=== PATIENT | female | born 1995 | race Hispanic/Latino ===

== ENCOUNTER 2019-01-27 07:37 | Emergency (ER) | payer BC, OTHER ==
--- OUTSIDE RECORDS SUMMARY | 2019-01-27 07:39 | XMS REPORT ---
:1995 [facility] [address] [place] [address] Dr. Rodriguez [address] [place] [id number] Care Team Providers Name Role Phone Unavailable Unavailable Unavailable Problems This patient has no known problems. Allergies, Adverse Reactions, Alerts This patient has no known allergies or adverse reactions. Medications This patient has no known medications.
--- NOTE | 2019-01-27 07:51 | ER ---
Nurse's Notes [facility] Name: Lizbeth Vera Age: 23 yrs Sex: Female : 1995 Arrival Date: 01/27/2019 Time: 07:45 Bed 5 Private MD: Diagnosis: Recurrent subluxation of patella, left knee Presentation: 01/27 07:48 Presenting complaint: EMS states: Pt getting into car and left knee locked up. jl7 Transition of care: patient was not received from another setting of care. Onset of symptoms was January 27, 2019. Risk Assessment: Do you want to hurt yourself or someone else? Patient reports no desire to harm self or others. Initial Sepsis Screen: Does the patient meet any 2 criteria? No. Patient's initial sepsis screen is negative. Does the patient have a suspected source of infection? No. Patient's initial sepsis screen is negative. Care prior to arrival: None. 07:48 Method Of Arrival: EMS: Agency EMS jl7 07:48 Acuity: WANG 4 jl7 Triage Assessment: 07:50 General: Appears in no apparent distress. uncomfortable, Behavior is calm, cooperative, jl7 appropriate for age. Pain: Denies pain. EENT: No signs and/or symptoms were reported regarding the EENT system. Neuro: Level of Consciousness is awake, alert, obeys commands, Oriented to person, place, time, situation. Cardiovascular: Patient's skin is warm and dry. Respiratory: Airway is patent Respiratory effort is even, unlabored, Respiratory pattern is regular, symmetrical. GI: No signs and/or symptoms were reported involving the gastrointestinal system. : No signs and/or symptoms were reported regarding the genitourinary system. Derm: Skin is pink, warm \T\ dry. Musculoskeletal: Range of motion: limited in left knee. 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 - Social history:: Smoking status: Patient/guardian denies using tobacco. - Family history:: not pertinent. - Ebola Screening: : No symptoms or risks identified at this time. - Hospitalizations: : No recent hospitalization is reported. Screenin:52 Abuse screen: Denies threats or abuse. Denies injuries from another. Nutritional jl7 screening: No deficits noted. Tuberculosis screening: No symptoms or risk factors identified. Fall Risk Gait- Impaired (20 pts.). Total Ureña Fall Scale indicates No Risk (0-24 pts). Assessment: 07:52 General: See triage assessment. jl7 Vital Signs: 07:50 BP 129 / 70; Pulse 85; Resp 16 S; Temp 98.2(O); Pulse Ox 100% on R/A; Weight 70.31 kg jl7 (R); Height 5 ft. 5 in. (165.10 cm) (R); Pain 0/10; 07:50 Body Mass Index 25.79 (70.31 kg, 165.10 cm) jl7 ED Course: 07:45 Patient arrived in ED. aa5 07:45 Byron Chicas MD is Attending Physician. rn 07:48 Roque Haywood, HERBERT is Primary Nurse. jl7 07:49 Triage completed. jl7 07:50 Zion Hess MD is Referral Physician. rn 07:50 Arm band placed on right wrist. jl7 07:52 Patient has correct armband on for positive identification. Bed in low position. Call jl7 light in reach. Side rails up X 1. Pulse ox on. NIBP on. 07:53 No provider procedures requiring assistance completed. Patient did not have IV access jl7 during this emergency room visit. Administered Medications: No medications were administered Outcome: 07:50 Discharge ordered by . rn 07:57 Discharged to home ambulatory. jl7 07:57 Condition: stable 07:57 Discharge instructions given to patient, Instructed on discharge instructions, follow up and referral plans. Demonstrated understanding of instructions, follow-up care. 07:57 Patient left the ED. jl7 Signatures: Byron Chicas MD MD rn Calderon, Audri, RN RN aa5 Roque Haywood RN RN jl7
--- NOTE | 2019-01-27 07:51 | EDPHYS ---
Physician Documentation [facility] Name: Lizbeth Vera Age: 23 yrs Sex: Female : 1995 Arrival Date: 01/27/2019 Time: 07:45 Bed 5 Private MD: ED Physician Byron Chicas HPI: 01/27 07:45 This 23 yrs old Female presents to ER via Unassigned with complaints of Knee rn Pain. 07:45 The patient presents with decreased range of motion, pain, that is acute. The rn complaints affect the left knee. Onset: The symptoms/episode began/occurred just prior to arrival. Modifying factors: The symptoms are alleviated by straightening leg. Severity of symptoms: At their worst the symptoms were moderate, in the emergency department the symptoms have improved. The patient has experienced similar episodes in the past. REports bending knee and twisting to get into vehicle, her left knee locked up, unable to move it, no pop or blunt trauma, now improved, able to range knee now and just feels sore, has happened before and reports in past able to straighten it and medial pressure resolves it. . 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 - Social history:: Smoking status: Patient/guardian denies using tobacco. - Family history:: not pertinent. - Ebola Screening: : No symptoms or risks identified at this time. - Hospitalizations: : No recent hospitalization is reported. ROS: 07:45 Constitutional: Negative for fever, chills, and weight loss, MS/Extremity: + left knee rn pain and locking Neuro: Negative for weakness, numbness Exam: 07:45 Constitutional: This is a well developed, well nourished patient who is awake, alert, rn and in no acute distress. MS/ Extremity: Pulses equal, no cyanosis. Neurovascular intact. Full, normal range of motion. Equal circumference. NO bony tenderness, no patellar dislocation currently. No palpable cord. Vital Signs: 07:50 BP 129 / 70; Pulse 85; Resp 16 S; Temp 98.2(O); Pulse Ox 100% on R/A; Weight 70.31 kg jl7 (R); Height 5 ft. 5 in. (165.10 cm) (R); Pain 0/10; 07:50 Body Mass Index 25.79 (70.31 kg, 165.10 cm) jl7 MDM: 07:45 Patient medically screened. rn 07:45 Differential diagnosis: dislocation, tendonitis, patella dislocation/subluxation. Data rn reviewed: vital signs, nurses notes, and as a result, I will discharge patient. Counseling: I had a detailed discussion with the patient and/or guardian regarding: the historical points, exam findings, and any diagnostic results supporting the discharge/admit diagnosis, the need for outpatient follow up, to return to the emergency department if symptoms worsen or persist or if there are any questions or concerns that arise at home. Response to treatment: the patient's symptoms have markedly improved after treatment. Special discussion: I discussed with the patient/guardian in detail that at this point there is no indication for admission to the hospital. It is understood, however, that if the symptoms persist or worsen the patient needs to return immediately for re-evaluation. Based on the history and exam findings, there is no indication for further emergent testing or inpatient evaluation. I discussed with the patient/guardian the need to see the orthopedic surgeon for further evaluation of the symptoms. ED course: Most likely subluxation of patella, given repeated episodes and improvement with straightening leg and medial pressure, no subluxation now, no trauma to suggest bony injury, discussed with patient that xray does not evaluate structures other than bone, and she declines xray. Suggest knee brace for patellar stabilization and ortho f/u. . Administered Medications: No medications were administered Disposition: 01/27/19 07:50 Discharged to Home. Impression: Recurrent subluxation of patella, left knee. - Condition is Stable. - Discharge Instructions: Patellar Dislocation. - Medication Reconciliation Form, Thank You Letter, Antibiotic Education, Prescription Opioid Use form. - Follow up: Zion Hess MD; When: As needed; Reason: Recheck today's complaints, Re-evaluation by your physician. - Problem is new. - Symptoms have improved. Signatures: Byron Chicas MD MD rn Leal, Jahala, RN RN jl7 Corrections: (The following items were deleted from the chart) 07:57 07:50 01/27/2019 07:50 Discharged to Home. Impression: Recurrent subluxation of jl7 patella, left knee. Condition is Stable. Forms are Medication Reconciliation Form, Thank You Letter, Antibiotic Education, Prescription Opioid Use. Follow up: Dr. Zion Hess; When: As needed; Reason: Recheck today's complaints, Re-evaluation by your physician. Problem is new. Symptoms have improved. rn
[2019-01-27 08:28] VITALS: BP 129/70; TEMP 98.2; O2SAT 100
== END 2019-01-27 07:57 | disposition home or self-care (01) ==
LOC: ER 07:37
DX: M22.12 Recurrent subluxation of patella, left knee (principal); J45.909 Unspecified asthma, uncomplicated; M06.9 Rheumatoid arthritis, unspecified; Z88.5 Allergy status to narcotic agent; Z88.0 Allergy status to penicillin
CPT/HCPCS: 99283

== ENCOUNTER 2021-11-30 10:43 | Emergency (ER) | payer OTHER ==
--- OUTSIDE RECORDS SUMMARY | 2021-11-30 10:49 | XMS REPORT | Continuity of Care Document ---
:1995 Author Organization [facility] t Address [address] [place] [address] Care Team Providers Name Role Phone Pepito Redman Jr. Primary Care Physician GARY AYALA Attending Clinician Unavailable Gary Ayala MD Attending Clinician Pob, Lab Main Attending Clinician Unavailable Yolie SCHUSTER Attending Clinician Ultrasound Attending Clinician Unavailable Carson Wright MD Attending Clinician Carson WRIGHT Attending Clinician Unavailable Payers Payer Name Policy Type Policy Number Effective Date Expiration Date [facility] [id number] 2021 00:00:00 Problems Condition Condition Condition Status Onset Resolution Last Treating Co mments Source Name Details Category Date Date Treatment Clinician Date High risk High risk Disease Active Uni vers , , 1-07 [place] History of History of Disease Active 2020-10 U nivers anxiety anxiety 0-15 ity of 00:00: [place] [id number] Medical Branch Nausea Nausea Disease Active 2020-10 Univers 0-15 ity of 00:00: [place] [address] Medical Branch 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 3-30 [place] of [place] (CH[place] (CHAKA II) 00 Medica l Branch Papanicola Papanicola Disease Active U nivers ou smear ou smear 3-23 ity 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 Allergies, Adverse Reactions, Alerts Allergy Allergy Status Severity Reaction(s) Onset Inactive Treating Comm ents Source Name Type Date Date Clinician Penicill Propensi Active Hives 2013-10 Univer s ins ty to 0-13 ity of adverse 00:00: [place] reaction 00 Medical s Branch Tramadol Propensi Active Anaphylaxis 2013-10 U nivers ty to 0-13 ity of adverse 00:00: [place] reaction 00 Medical s Branch PENICILL Drug Active Hives 2013-10 Univers INS Class 0-13 ity of 00:00: [place] 00 Medical Branch TRAMADOL DRUG Active Anaphylaxis 2013-10 Uni vers INGREDI 0-13 ity of 00:00: [address] Social History Social Habit Start Date Stop Date Quantity Comments Source ASSERTION 2021-06-14 [facility] 00:00:00 [facility] Alcohol intake 2021-11-16 2021-11-16 Ex-drinker [facility] 00:00:00 00:00:00 (finding) [facility] Sex Ass[birth year] At [birth year] Universit y of 00:00:00 00:00:00 [facility] Smoking Status Start Date Stop Date Source Never smoker [facility] Medications Ordered Filled Start Stop Current Ordering Indication Dosage Frequency Signature Comments Components Source Medication Medication Date Date Medication? Clinician (SIG) Name Name Nitrofurant Yes [id number] 100mg Take 1 Univers oin&Nit. 1-18 capsule by dago anglin f [facility] 00:00: mouth [place] (MACROBID) 00 daily. Medical 100 mg Branch capsule Nitrofurant Yes [id number] 100mg Take 1 Univers oin&Nit. 1-18 capsule by ity o f [facility] 00:00: mouth [place] (MACROBID) 00 daily. Medical 100 mg Branch capsule Nitrofurant Yes [id number] 100mg Take 1 Univers oin&Nit. 1-18 capsule by ity o f [facility] 00:00: mouth [place] (MACROBID) 00 daily. Medical 100 mg Branch capsule Nitrofurant Yes [id number] 100mg Take 1 Univers oin&Nit. 1-18 capsule by ity o f [facility] 00:00: mouth [place] (MACROBID) 00 daily. Medical 100 mg Branch capsule Nitrofurant Yes [id number] 100mg Take 1 Univers oin&Nit. 1-18 capsule by ity o f [facility] 00:00: mouth [place] (MACROBID) 00 daily. Medical 100 mg Branch capsule Nitrofurant Yes [id number] 100mg Take 1 Univers oin&Nit. 1-18 capsule by ity o f [facility] 00:00: mouth [place] (MACROBID) 00 daily. Medical 100 mg Branch capsule Nitrofurant 2021- Yes [id number] 100mg Take 1 Univers oin&Nit. 1-10 -18 capsule by ity of [facility] 00:00: 05:59 mouth 2 [place] (MACROBID) 00 :00 (two) Medical 100 mg times Branch capsule daily for 7 days. Nitrofurant 2021- Yes [id number] 100mg Take 1 Univers oin&Nit. 1-10 -18 capsule by ity of [facility] 00:00: 05:59 mouth 2 [place] (MACROBID) 00 :00 (two) Medical 100 mg times Branch capsule daily for 7 days. cephALEXin 2020-10- Yes [id number] 500mg Take 1 Univers 500 mg 11-25 capsule by ity of capsule 00:00: 05:59 mouth 4 [place] 00 :00 (four) Medical times Branch daily for 7 days. cephALEXin 2020-10- No [id number] 500mg Take 1 Univers 500 mg 1-08 12-10 capsule by ity of capsule 00:00: 00:00 mouth 2 [place] 00 :00 (two) Medical times Branch daily. Yes Take by Unive rs vit 9-30 mouth. ity of calc,iron,f 14:37: [place] [address] Medical ( Branch VITAMIN ORAL) Yes Take by Unive rs vit 9-30 mouth. ity of calc,iron,f 14:37: [address] ( Branch VITAMIN ORAL) Yes Take by Unive rs vit 9-30 mouth. ity of calc,iron,f 14:37: [address] ( Branch VITAMIN ORAL) Yes Take by Unive rs vit 9-30 mouth. ity of calc,iron,f 14:37: [address] ( Branch VITAMIN ORAL) Yes Take by Unive rs vit 9-30 mouth. ity of calc,iron,f 14:37: [address] ( Branch VITAMIN ORAL) Yes Take by Unive rs vit 9-30 mouth. ity of calc,iron,f 14:37: [address] ( Branch VITAMIN ORAL) Yes Take by Unive rs vit 9-30 mouth. ity of calc,iron,f 14:37: [address] ( Branch VITAMIN ORAL) Yes Take by Unive rs vit 9-30 mouth. ity of calc,iron,f 14:37: [address] ( Branch VITAMIN ORAL) Yes Take by Unive rs vit 9-30 mouth. ity of calc,iron,f 14:37: [address] ( Branch VITAMIN ORAL) Yes Take by Unive rs vit 9-30 mouth. ity of calc,iron,f 14:37: [address] ( Branch VITAMIN ORAL) ALBUTEROL Yes Inhale. Unive rs INHALE 6-21 ity of 11:26: [address] ALBUTEROL 2018- Yes Inhale. Unive rs INHALE 6-21 ity of 11:26: [address] ALBUTEROL 2018-0 Yes Inhale. Unive rs INHALE 6-21 ity of 11:26: [address] ALBUTEROL 2018-0 Yes Inhale. Unive rs INHALE 6-21 ity of 11:26: [address] ALBUTEROL 2018-0 Yes Inhale. Unive rs INHALE 6-21 ity of 11:26: [address] ALBUTEROL 2018-0 Yes Inhale. Unive rs INHALE 6-21 ity of 11:26: [address] ALBUTEROL 2018-0 Yes Inhale. Unive rs INHALE 6-21 ity of 11:26: [address] ALBUTEROL 2017-0 Yes Inhale. Unive rs INHALE 6-21 ity of 11:26: [address] ALBUTEROL 2018-0 Yes Inhale. Unive rs INHALE 6-21 ity of 11:26: [address] ALBUTEROL 0 Yes Inhale. Unive rs INHALE 6-21 ity of 11:26: [address] Immunizations Ordered Filled Immunization Date Status Comments [facility] e Immunization Name Name TD 2016-07-04 Completed University of 00:00:00 [facility] Influenza Virus 2016-07-04 Completed Universit y of Vaccine Quad IM 3+ 00:00:00 [facility] TDAP 2016-07-04 Completed University of 00:00:00 [facility] Influenza Virus 2016-07-04 Completed Universit y of Vaccine Quad IM 3+ 00:00:00 [facility] TDAP 2016-07-04 Completed University of 00:00:00 [facility] Influenza Virus 2016-07-04 Completed Universit y of Vaccine Quad IM 3+ 00:00:00 [facility] TDAP 2016-07-04 Completed University of 00:00:00 [facility] Influenza Virus 2016-07-04 Completed Universit y of Vaccine Quad IM 3+ 00:00:00 [facility] TDAP 2016-07-04 Completed University of 00:00:00 [facility] Influenza Virus 2016-07-04 Completed Universit y of Vaccine Quad IM 3+ 00:00:00 [facility] TDAP 2016-07-04 Completed University of 00:00:00 [facility] Influenza Virus 2016-07-04 Completed Universit y of Vaccine Quad IM 3+ 00:00:00 [facility] TDAP 2016-07-04 Completed University of 00:00:00 [facility] Influenza Virus 2016-07-04 Completed Universit y of Vaccine Quad IM 3+ 00:00:00 [facility] TDAP 2016-07-04 Completed University of 00:00:00 [facility] Influenza Virus 2016-07-04 Completed Universit y of Vaccine Quad IM 3+ 00:00:00 [facility] TDAP 2016-07-04 Completed University of 00:00:00 [facility] Influenza Virus 2016-07-04 Completed Universit y of Vaccine Quad IM 3+ 00:00:00 [facility] TDAP 2016-07-04 Completed University of 00:00:00 [facility] Influenza Virus 2016-07-04 Completed Universit y of Vaccine Quad IM 3+ 00:00:00 [facility] MMR 2014-07-27 Completed University of 00:00:00 [facility] MMR 2014-07-27 Completed University of 00:00:00 [facility] MMR 2014-07-27 Completed University of 00:00:00 [facility] MMR 2014-07-27 Completed University of 00:00:00 [facility] MMR 2014-07-27 Completed University of 00:00:00 [facility] MMR 2014-07-27 Completed University of 00:00:00 [facility] MMR 2014-07-27 Completed University of 00:00:00 [facility] MMR 2014-07-27 Completed University of 00:00:00 [facility] MMR 2014-07-27 Completed University of 00:00:00 [facility] MMR 2014-07-27 Completed University of 00:00:00 [facility] Td 2009-05-25 Completed University of 00:00:00 [facility] Td 2009-05-25 Completed University of 00:00:00 [facility] Td 2009-05-25 Completed University of 00:00:00 [facility] Td 2009-05-25 Completed University of 00:00:00 [facility] Td 2009-05-25 Completed University of 00:00:00 [facility] Td 2009-05-25 Completed University of 00:00:00 [facility] Td 2009-05-25 Completed University of 00:00:00 [facility] Td 2009-05-25 Completed University of 00:00:00 [facility] Td 2009-05-25 Completed University of 00:00:00 [facility] Td 2009-05-25 Completed University of 00:00:00 [facility] Vital Signs Vital Name Observation Time Observation Value Comments Source Diastolic blood 2021-11-16 20:04:00 69 mm[Hg] Unive rsity of pressure [facility] Heart rate 2021-11-16 20:04:00 66 /min Universi ty of [facility] Body temperature 2021-11-16 20:04:00 36.44 Melvi Univ ersity of [facility] Respiratory rate 2021-11-16 20:04:00 18 /min Univ ersity of [facility] [place] [facility] Body height 2021-11-16 20:04:00 165.1 cm Universi ty of [facility] Body weight 2021-11-16 20:04:00 72.576 kg Universi ty of [facility] BMI 2021-11-16 20:04:00 26.63 kg/m2 Universi ty of [facility] Systolic blood 2021-11-16 20:04:00 107 mm[Hg] Univer sity of pressure [facility] Systolic blood 2021-10-19 20:38:00 110 mm[Hg] Univer sity of pressure [facility] Diastolic blood 2021-10-19 20:38:00 73 mm[Hg] Unive rsity of pressure [facility] Heart rate 2021-10-19 20:38:00 82 /min Universi ty of [facility] Body temperature 2021-10-19 20:38:00 36.44 Melvi Univ ersity of [facility] Respiratory rate 2021-10-19 20:38:00 18 /min Univ ersity of [facility] Body height 2021-10-19 20:38:00 165.1 cm Universi ty [facility] Body weight 2021-10-19 20:38:00 70.761 kg Universi ty of [facility] BMI 2021-10-19 20:38:00 25.96 kg/m2 Universi ty of [facility] Systolic blood 2021-09-21 18:32:00 111 mm[Hg] Univer sity of pressure [facility] Diastolic blood 2021-09-21 18:32:00 74 mm[Hg] Unive rsity of pressure [facility] Heart rate 2021-09-21 18:32:00 60 /min Universi ty of [facility] Body temperature 2021-09-21 18:32:00 36.89 Melvi [facility] Respiratory rate 2021-09-21 18:32:00 18 /min [facility] Body height 2021-09-21 18:32:00 165.1 cm [facility] Body weight 2021-09-21 18:32:00 68.629 kg [facility] BMI 2021-09-21 18:32:00 25.18 kg/m2 [facility] Procedures Procedure Date / Time Performing Clinician Source Performed 2 HR GLUCOSE TOLERANCE 2021-11-16 17:40:00 Kiki Urbano [facility] 1 HR GLUCOSE TOLERANCE 2021-11-16 16:38:00 Kiki Urbano [facility] GLUCOSE FASTING 2021-11-16 15:38:00 Josewmchealthjani [facility] o f [facility] GLYCOSYLATED HEMOGLOBIN 2021-11-16 15:38:00 Yolie Kiki [facility] (A1C) [facility] POCT URINALYSIS W/O 2021-11-16 00:00:[address] [facility] SPECIFIC GRAVITY [facility] POCT URINALYSIS W/O 2021-10-19 00:00:[address] [facility] SPECIFIC GRAVITY [facility] POCT URINALYSIS W/O 2021-09-21 18:38:00 Allen Ayala [facility] GRAVITY [facility] Encounters Start End Encounter Admission Attending Care Care Encounter Source Date/Time Date/Time Type Type Clinicians Facility Department ID 2021-12-14 2021-12-14 Outpatient R ALLEN AYALA [facility] [id number] Univers 12:45:00 12:45:00 [id number] [facility] [facility] 2021-12-14 2021-12-14 Outpatient R ALLEN AYALA [facility] [id number] Univers 12:45:00 12:45:00 [facility] [facility] 2021-11-20 2021-11-20 Telephone Allen Ayala [facility] [id number] Univers 00:00:00 00:00:00 Gary GONZALEZ [id number] i ty of [id number] [id number] Hi dical NAL [address] [facility] 2021-11-16 2021-11-16 Outpatient R ALLEN AYALA [facility] [id number] Univers 14:00:00 14:35:07 ity of [facility] 2021-11-16 2021-11-[address] [facility] [id number] Univers 14:00:00 14:35:07 Gary CABRERA [id number] i ty of Visit [place] [id number] [id number] [address] 2021-11-16 2021-11-16 Inspector Technician Josiah, Katerin Lab Main [facility] 1.2.8 [id number] Univers 10:45:00 11:00:00 Visit Kiki Urbano [id number] ity of [facility] [id number] [id number] Hi dical NAL 353 [facility] 2021-11-16 2021-11-16 Outpatient R LUCY [facility] [id number] Univers 10:45:00 10:45:00 [id number] ity of [facility] 2021-11-01 2021-11-[address] [facility] [id number] Univers 00:00:00 00:00:00 Gary CABRERA [id number] [id number] [id number] [address] 2021-10-22 2021-10-[address] [facility] [id number] Univers 00:00:00 00:00:00 Management Gary CABRERA [id number] ity of [place] [id number] [id number] [address] 2021-10-22 2021-10-[address] [facility] [id number] Univers 00:00:00 00:00:00 Gary CABRERA [id number] it y of [place] [id number] [id number] [address] 2021-10-19 2021-10-19 Outpatient R ALLEN AYALA [facility] [id number] Univers 14:30:00 14:50:20 ity of [facility] 2021-10-19 2021-10-[address] 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 [id number] ity [facility] [id number] [place] MATERNAL [id number] Med ical & CHILD [address] [place] [address] 2021-10-18 2021-10-18 Outpatient R [facility] [id number] Univers 14:45:00 14:45:00 [id number] ity [facility] 2021-10-18 2021-10-18 Outpatient P KYLE [facility] [id number] Univers 14:45:00 14:45:00 [facility] 2021-09-24 2021-09-24 Case Yolie [facility] [id number] Univers 00:00:00 00:00:00 Management Kiki LISA [id number] ity [facility] [id number] [id number] Hi dical [address] 2021-09-21 2021-09-[address] [facility] [id number] Univers 12:10:28 12:51:16 Gary CABRERA [id number] i ty of Visit WOMEN'S 4.2.7.2.686 [facility] [id number] [facility] 134 Branch Results Test Description Test Time Test Comments Results Result Comments Source POCT URINALYSIS W/O SPECIFIC GRAVITY 2021-11-16 20:19:00 Test Item Value Reference Range Interpretation Comme nts POCT PH U (test code = 3254) n/a 5-8 POCT U LEUK EST (test code = 3263) n/a Negative - Negative POCT U NIT (test code = 3262) n/a Negative - Negative POCT U PROT (test code = 3259) allie Negative - Negative POCT U GLU (test code = 3256) neg Negative - Negative POCT U KETONE (test code = 3258) n/a Negative - Negative POCT U BLD (test code = 3257) n/a Negative - Negative [facility] SPEC[facility] [id number] 21:52:00 Test Item Value Reference Range Interpretation Comments POCT PH U (test code = 3254) N/A 5-8 POCT U LEUK EST (test code = N/A Negative - Negative 3263) POCT U NIT (test code = 3262) N/A Negative - Negative POCT U PROT (test code = 3259) Negative Negative - Negative POCT U GLU (test code = 3256) Negative Negative - Negative POCT U KETONE (test code = 3258) N/A Negative - Negative POCT U BLD (test code = 3257) N/A Negative - Negative [facility]O SPECIFIC [id number] 18:38:00 Test Item Value Reference Range Interpretation Comments POCT PH U (test code = 3254) n/a 5-8 POCT U LEUK EST (test code = n/a Negative - Negative 3263) POCT U NIT (test code = 3262) n/a Negative - Negative POCT U PROT (test code = 3259) Negative Negative - Negative POCT U GLU (test code = 3256) Negative Negative - Negative POCT U KETONE (test code = 3258) n/a Negative - Negative POCT U BLD (test code = 3257) n/a Negative - Negative Lab Interpretation (test code = Normal 18035-6) [facility]
[2021-11-30] MEDS ORDERED: ADENOSINE 6 MG/ 2ML VIAL IV ONE (11:06)
[2021-11-30] MEDS ORDERED: NA CHLORIDE 0.9% 1,000 ML ONE (11:06)
[2021-11-30 11:23] LABS: Absolute Lymphocytes (CBC) 2.2 K/uL (0.7-4.9); RBC Red Blood Cell Count 4.55 M/uL (3.86-4.86)
[2021-11-30 11:41] LABS: Potassium 3.9 mmol/L (3.5-5.1)
[2021-11-30 11:43] LABS: Thyroid Stimulating Hormone 4.15 uIU/mL (0.360-3.740)
--- NOTE | 2021-11-30 12:58 | EDPHYS ---
Physician Documentation [facility] Name: Lizbeth Vera Age: 26 yrs Sex: Female : 1995 Arrival Date: 11/30/2021 Time: 10:47 Bed 2 Private MD: ED Physician Byron Chicas HPI: 11/30 11:22 This 26 yrs old Female presents to ER via Ambulatory with complaints of rn palpitations. 11:22 The patient presents with a history of heart racing. Context: The symptoms occur at rn rest. Onset: The symptoms/episode began/occurred this morning. Duration: The patient or guardian reports a single episode, that is still ongoing. Modifying factors: The symptoms are aggravated by nothing. The symptoms are alleviated by nothing. Associated signs and symptoms: Pertinent positives: lightheadedness, Pertinent negatives: fever, syncope. Severity of symptoms: At their worst the symptoms were moderate in the emergency department the symptoms are unchanged. The patient has experienced similar episodes in the past, a few times. The patient has been recently seen by a physician:. Pt reports fast heart rate, began this morning, has happened a few times during this and has mentioned to her doctor but nothing done. Reports this morning started on its own. No vaginal bleeding or abd pain. No trauma. No medication changes. Reports hx of "too much thyroid", but stopped her medication on her own. . 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 - Social history:: Smoking status: Patient denies any tobacco usage or history of. - Family history:: not pertinent. - Hospitalizations: : No recent hospitalization is reported. ROS: 11:22 Constitutional: Negative for fever, chills, and weight loss, Eyes: Negative for injury, rn pain, redness, and discharge, Neck: Negative for injury, pain, and swelling, Cardiovascular: + palpitations Respiratory: Negative for shortness of breath, cough, wheezing, and pleuritic chest pain, Abdomen/GI: Negative for abdominal pain, nausea, vomiting, diarrhea, and constipation, Back: Negative for injury and pain, : Negative for injury, bleeding, discharge, and swelling, MS/Extremity: Negative for injury and deformity, Skin: Negative for injury, rash, and discoloration, Neuro: Negative for headache, numbness, tingling, and seizure. Exam: 11:22 Constitutional: This is a well developed, well nourished patient who is awake, alert, rn appears anxious Head/Face: Normocephalic, atraumatic. Eyes: Periorbital areas with no swelling, redness, or edema. Cardiovascular: Tachycardic, regular Respiratory: Mild tachypnea, no retractions, able to slow her breathing down with coaching. Abdomen/GI: Soft, non-tender Skin: Warm, dry with normal turgor. Normal color with no rashes, no lesions, and no evidence of cellulitis. MS/ Extremity: Pulses equal, no cyanosis. Neurovascular intact. Full, normal range of motion. Equal circumference. Neuro: Awake and alert, GCS 15, oriented to person, place, time, and situation. Cranial nerves II-XII grossly intact. Motor strength 5/5 in all extremities. Sensory grossly intact. Cerebellar exam normal. 11:26 ECG was reviewed by the Attending Physician. rn Vital Signs: 10:47 BP 117 / 72; Pulse 180; Resp 22; Temp 97.9(TE); Pulse Ox 100% on R/A; Weight 72.57 kg; ss Height 5 ft. 5 in. (165.10 cm); Pain 0/10; 11:11 BP 107 / 86; Pulse 171; ke1 11:12 BP 144 / 93; Pulse 122; Resp 20; Pulse Ox 100% ; ke1 11:13 BP 121 / 79; Pulse 94; ke1 11:13 BP 125 / 85; Pulse 102; Resp 19; Pulse Ox 100% on R/A; ke1 12:06 BP 116 / 87; Pulse 75; Resp 18; ke1 12:50 BP 117 / 89; Pulse 78; Resp 16 S; Pulse Ox 99% on R/A; jd3 13:03 BP 117 / 89; Pulse 83; Resp 16; Pulse Ox 100% on R/A; ke1 10:47 Body Mass Index 26.63 (72.57 kg, 165.10 cm) ss MDM: 10:48 Patient medically screened. rn 11:02 ED course: Attempted multiple vagal maneuvers without change. Patient reports rn lightheaded. Vital signs stable at this time. Will attempt adenosine cardioversion.. 11:20 ED course: Pt cardioverted with adenosine, 6mg, one dose, HR now sinus and rate of 95, rn patient feels much better. Bedside u/s performed, good movement, FHT 154 and ultrasound activity shown to mother. . 12:56 Differential diagnosis: arrythmia, dehydration, stress disorder. Data reviewed: vital rn signs, nurses notes, lab test result(s), EKG, and as a result, I will discharge patient. Counseling: I had a detailed discussion with the patient and/or guardian regarding: the historical points, exam findings, and any diagnostic results supporting the discharge/admit diagnosis, lab results, the need for outpatient follow up, to return to the emergency department if symptoms worsen or persist or if there are any questions or concerns that arise at home. Response to treatment: the patient's symptoms have resolved after treatment, the patient's condition has returned to base line, the patient is now symptom free, and as a result, I will discharge patient. Special discussion: I discussed with the patient/guardian in detail that at this point there is no indication for admission to the hospital. It is understood, however, that if the symptoms persist or worsen the patient needs to return immediately for re-evaluation. Based on the history and exam findings, there is no indication for further emergent testing or inpatient evaluation. I discussed with the patient/guardian the need to see the city marshal for further evaluation of the symptoms. 11/30 11:00 Order name: CBC with Diff rn 11/30 11:00 Order name: Basic Metabolic Panel rn 11/30 11:00 Order name: TSH rn 11/30 11:00 Order name: T4 Free rn 11/30 11:00 Order name: CBC with Automated Diff; Complete Time: 11:30 EDMS 11/30 11:00 Order name: Basic Metabolic Panel; Complete Time: 12:08 EDMS 11/30 11:00 Order name: IV Start; Complete Time: 11: rn 11/30 11:00 Order name: Cardiac monitoring; Complete Time: 11: rn 11/30 11:00 Order name: EKG; Complete Time: 11: rn 11/30 11:01 Order name: Thyroid Stimulating Hormone; Complete Time: 12: EDMS 11/30 11: Order name: T4 Free; Complete Time: 12: EDOK 11/30 11:00 Order name: O2 Sat Monitoring; Complete Time: 11: rn 11/30 11:00 Order name: EKG - Nurse/Tech; Complete Time: 11: rn EC:26 Rate is 170 beats/min. Rhythm is regular. QRS [place] is Normal. TN interval is normal. rn QRS interval is normal. QT interval is normal. No Q waves. T waves are Normal. No ST changes noted. Clinical impression: SVT. Interpreted by me. Reviewed by me. Administered Medications: 11: Drug: NS 0.9% 1000 ml Route: IV; Rate: 1000 ml; Site: left antecubital; ke1 12:04 Follow up: IV Status: Completed infusion; IV Intake: 500ml ke1 11:11 Drug: Adenosine 6 mg Route: IVP; Site: left antecubital; ke1 11:13 Follow up: BP 121 / 79; Pulse 94 bpm; Response: Marked relief of symptoms; Other ke1 11:30 CANCELLED (Other Intervention Used): Adenosine 12 mg IVP once ke1 Disposition Summary: 11/30/21 12:57 Discharge Ordered Location: Home rn Problem: new rn Symptoms: have improved rn Condition: Stable rn Diagnosis - Supraventricular tachycardia rn Followup: rn - With: Private Physician - When: As needed - Reason: Recheck today's complaints, Re-evaluation by your physician Discharge Instructions: - Discharge Summary Sheet rn - Chemical Cardioversion rn - Supraventricular Tachycardia, Adult rn Forms: - Medication Reconciliation Form rn - Thank You Letter rn - Antibiotic social media intern - Prescription Opioid Use rn Signatures: Dispatcher [employer] Byron Dillon MD MD rn Smirch, Shelby, RN RN ss Ebrottie, Kouassi, RN RN ke1 Corrections: (The following items were deleted from the chart) 11: 11:01 Adenosine 12 mg IVP once ordered. rn ke1 11: 11:23 Adenosine 12 mg IVP once given. ke1 ke1 11: 11:30 Adenosine 12 mg IVP once ordered. ke1 ke1
--- NOTE | 2021-11-30 12:58 | ER ---
Nurse's Notes [facility] Name: Lizbeth Vera Age: 26 yrs Sex: Female : 1995 Arrival Date: 11/30/2021 Time: 10:47 Bed 2 Private MD: Diagnosis: Supraventricular tachycardia Presentation: 11/30 10:47 Chief complaint: Patient states: Fast heart rate. Pt reports she has had 3 or so ss episodes of having a fast heart rate, but it would go away after laying down momentarily, but this time is not going away. Coronavirus screen: Client denies travel out of the [place] in the last 14 days. Ebola Screen: Patient denies exposure to infectious person. Patient denies travel to an Ebola-affected area in the 21 days before illness onset. Initial Sepsis Screen: Does the patient meet any 2 criteria? RR > 20 per min. HR > 90 bpm. No. Patient's initial sepsis screen is negative. Does the patient have a suspected source of infection? No. Patient's initial sepsis screen is negative. Risk Assessment: Do you want to hurt yourself or someone else? Patient reports no desire to harm self or others. Onset of symptoms was November 30, 2021. 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 - Social history:: Smoking status: Patient denies any tobacco usage or history of. - Family history:: not pertinent. - Hospitalizations: : No recent hospitalization is reported. Screenin:11 Abuse screen: Denies threats or abuse. Nutritional screening: No deficits noted. ke1 Tuberculosis screening: No symptoms or risk factors identified. Fall Risk None identified. Assessment: 11:09 General: Appears uncomfortable, Behavior is calm, cooperative, quiet. Neuro: No ke1 deficits noted. 11:09 Cardiovascular: Reports palpitations, fast heart rate Capillary refill < 3 seconds ke1 Patient's skin is warm and dry. Pulses are all present. Rhythm is SVT. Respiratory: Airway is patent. GI: Abdomen is round . :. Derm: Skin is intact. Musculoskeletal: Circulation, motion, and sensation intact. 11:09 Pain: Denies pain. ke1 11:10 Cardiovascular: Rhythm is SVT. ke1 11:17 Cardiovascular: Rhythm is sinus rhythm. ke1 11:34 Neuro: No deficits noted. ke1 11:34 Reassessment: Patient states feeling better. Patient states symptoms have improved. ke1 Cardiovascular: Rhythm is sinus rhythm. 12:25 Reassessment: No changes from previously documented assessment. ke1 12:50 Reassessment: No changes from previously documented assessment. Patient and/or family jd3 updated on plan of care and expected duration. Pain level reassessed. Patient is alert, oriented x 3, equal unlabored respirations, skin warm/dry/pink. Vital Signs: 10:47 BP 117 / 72; Pulse 180; Resp 22; Temp 97.9(TE); Pulse Ox 100% on R/A; Weight 72.57 kg; ss Height 5 ft. 5 in. (165.10 cm); Pain 0/10; 11:11 BP 107 / 86; Pulse 171; ke1 11:12 BP 144 / 93; Pulse 122; Resp 20; Pulse Ox 100% ; ke1 11:13 BP 121 / 79; Pulse 94; ke1 11:13 BP 125 / 85; Pulse 102; Resp 19; Pulse Ox 100% on R/A; ke1 12:06 BP 116 / 87; Pulse 75; Resp 18; ke1 12:50 BP 117 / 89; Pulse 78; Resp 16 S; Pulse Ox 99% on R/A; jd3 13:03 BP 117 / 89; Pulse 83; Resp 16; Pulse Ox 100% on R/A; ke1 10:47 Body Mass Index 26.63 (72.57 kg, 165.10 cm) Vitals: 11:14 Heart Tones 154. ke1 12:25 Cardiac Rhythm Assessment Sinus rhythm. ke1 ED Course: 10:47 Patient arrived in ED. mr 10:48 Byron Chicas MD is Attending Physician. rn 10:59 EKG done, by ED staff, reviewed by Byron Chicas MD. em1 11:00 Triage completed. ss 11:00 Ebrottie, Kouassi, RN is Primary Nurse. ke1 11:01 Inserted saline lock: 20 gauge in left antecubital area, using aseptic technique. ke1 11:09 Arm band placed on right wrist. ke1 13:11 No provider procedures requiring assistance completed. IV discontinued. ke1 13:11 Patient has correct armband on for positive identification. ke1 Administered Medications: 11:11 Drug: NS 0.9% 1000 ml Route: IV; Rate: 1000 ml; Site: left antecubital; ke1 12:04 Follow up: IV Status: Completed infusion; IV Intake: 500ml ke1 11:11 Drug: Adenosine 6 mg Route: IVP; Site: left antecubital; ke1 11:13 Follow up: BP 121 / 79; Pulse 94 bpm; Response: Marked relief of symptoms; Other ke1 11:30 CANCELLED (Other Intervention Used): Adenosine 12 mg IVP once ke1 Intake: 12:04 IV: 500ml; Total: 500ml. ke1 Outcome: 12:57 Discharge ordered by . rn 13:11 Discharged to home ambulatory. ke1 13:11 Condition: improved 13:11 Discharge instructions given to patient. 13:16 Patient left the ED. ke1 Signatures: Ayah Mathias Roman, MD MD rn Kunal Prince Shelby, RN RN ss Davies, Jonathon, RN RN jd3 Ebrottie, Kouassi, RN RN ke1 Corrections: (The following items were deleted from the chart) 11:02 11:01 Inserted saline lock: 22 gauge in left antecubital area, using aseptic technique. ke1 ke1 11:30 11:11 Adenosine 6 mg IVP in left antecubital ke1 ke1 11:41 11:09 Cardiovascular: Reports ke1 ke1 13:12 11:00 Arm band placed on right wrist. ss ke1
[2021-11-30 13:36] VITALS: TEMP 97.9
[2021-11-30 13:42] VITALS: BP 117/89
[2021-11-30 13:43] VITALS: O2SAT 100
--- NOTE | 2021-12-01 18:19 | EKG ---
Test Date: 2021-11-30 Test Time: 10:56:56 Life Educator: LAKSHMI MEASUREMENT RESULTS: Intervals: Rate: 170 WA: QRSD: 72 QT: 276 QTc: [address] [place]: P: [place]: QRS: 64 T: -24 INTERPRETIVE STATEMENTS: Supraventricular tachycardia ST & T wave abnormality, consider inferior ischemia Abnormal ECG Compared to ECG 07/01/2011 15:26:46 ST (T wave) deviation now present Possible ischemia now present Sinus rhythm no longer present T-wave abnormality no longer present Prolonged QT interval no longer present Electronically Signed On 12-01-21 18:17:37 BACK PAD INSPECTOR by Angelo Friedman
== END 2021-11-30 13:16 | disposition home or self-care (01) ==
LOC: ER 10:43
DX: O99.419 Diseases of the circulatory system complicating pregnancy, unspecified trimester (principal); I47.1 Supraventricular tachycardia; Z3A.00 Weeks of gestation of pregnancy not specified; Z88.0 Allergy status to penicillin; Z88.5 Allergy status to narcotic agent
CPT/HCPCS: 96361; 93005 ×2; 85025; 80048; 36415; 84443; 84439; 96374; 99285; J0153; J7030

== ENCOUNTER 2021-12-31 11:39 | Emergency (ER) | payer OTHER ==
--- OUTSIDE RECORDS SUMMARY | 2021-12-31 11:43 | XMS REPORT | Continuity of Care Document ---
:1995 Author Organization [facility] t Address [address] [place] [address] Care Team Providers Name Role Phone Pepito RAMOS JR Primary Care Physician Unavailable GARY AYALA Attending Clinician Unavailable REYNA Attending Clinician Unavailable REYNA Attending Clinician Unavailable CLARITA Attending Clinician Unavailable Doctor Unassigned, Name Attending Clinician Unavailable Gary Ayala MD Attending Clinician Pob, Lab Main Attending Clinician Unavailable Yolie SCHUSTER Attending Clinician Ultrasound Attending Clinician Unavailable Carson Wright MD Attending Clinician Carson WRIGHT Attending Clinician Unavailable Payers Payer Name Policy Type Policy Number Effective Date Expiration Date Johnathan jennings [facility] STAR [id number] 2021 00:00:00 Problems Condition Condition Condition Status Onset Resolution Last Treating Co mments Source Name Details Category Date Date Treatment Clinician Date Vaginal Vaginal Disease Active Univers discharge discharge 3-18 ity of 00:00: [address] Acute Acute Disease Active Univers lower lower 3-18 [place]y of [place] Medical [place] infection Bran ch Mild Mild Disease Active Univers anxiety anxiety 3-18 ity of 00:00: [place] [address] Medical Branch SVT SVT Disease Active Univers (supravent (supravent 3-04 it y of ricular ricular 00:00: [place] tachycardi tachycardi 00 Me dical a) a) Branch High risk High risk Disease Active Uni vers , , 1-07 [place] y of ante[place] History of History of Disease Active 2020-10 U nivers anxiety anxiety 0-15 ity of 00:00: [place] 00 Medical Branch Nausea Nausea Disease Active 2020-10 Univers 0-15 ity of 00:00: [place] 00 Medical Branch 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 00:00:00 00:00:00 (finding) [facility] Sex Assigned At [birth year] [facility] y of 00:00:00 00:00:00 [facility] Smoking Status Start Date Stop Date Source Never smoker [facility] Medications Ordered Filled Start Stop Current Ordering Indication Dosage Frequency Signature Comments Components Source Medication Medication Date Date Medication? Clinician (SIG) Name Name johanna 2021- Yes [id number] 250mg Take 1 Univers n 18 -25 tablet by ity of (ZITHROMAX 00:00: 04:59 mouth [place] Z-MICHAEL) 250 00 :00 daily for Medi valeria mg tablet 6 doses. [place] ALBUTEROL Yes Inhale. Unive rs INHALE 3-04 ity of 12:59: [address] ALBUTEROL Yes Inhale. Unive rs INHALE 3-04 ity of 12:59: [address] ALBUTEROL Yes Inhale. Unive rs INHALE 3-04 ity of 12:59: [address] ALBUTEROL Yes Inhale. Unive rs INHALE 3-04 ity of 12:59: [address] Nitrofurant Yes [id number] 100mg Take 1 Univers oin&Nit. 1-18 capsule by ity o f Macrocryst 00:00: mouth [place] (MACROBID) 00 daily. Medical 100 mg Branch capsule Nitrofurant 0 Yes [id number] 100mg Take 1 Univers oin&Nit. 1-18 capsule by ity o f Macrocryst 00:00: mouth [place] (MACROBID) 00 daily. Medical 100 mg Branch capsule Nitrofurant 0 Yes [id number] 100mg Take 1 Univers oin&Nit. 1-18 capsule by ity o f Macrocryst 00:00: mouth [place] (MACROBID) 00 daily. Medical 100 mg Branch capsule Nitrofurant 0 Yes [id number] 100mg Take 1 Univers oin&Nit. 1-18 capsule by ity o f Macrocryst 00:00: mouth [place] (MACROBID) 00 daily. Medical 100 mg Branch capsule Nitrofurant 0 Yes [id number] 100mg Take 1 Univers oin&Nit. 1-18 capsule by ity o f Macrocryst 00:00: mouth [place] (MACROBID) 00 daily. Medical 100 mg Branch capsule Nitrofurant 0 Yes [id number] 100mg Take 1 Univers oin&Nit. 1-18 capsule by ity o f Macrocryst 00:00: mouth [place] (MACROBID) 00 daily. Medical 100 mg Branch capsule Nitrofurant 0 Yes [id number] 100mg Take 1 Univers oin&Nit. 1-18 capsule by ity o f Macrocryst 00:00: mouth [place] (MACROBID) 00 daily. Medical 100 mg Branch capsule Nitrofurant 2021-0 Yes [id number] 100mg Take 1 Univers oin&Nit. 1-18 capsule by ity o Macrocryst 00:00: mouth [place] (MACROBID) 00 daily. Medical 100 mg Branch capsule Nitrofurant 0 Yes [id number] 100mg Take 1 Univers oin&Nit. 1-18 capsule by ity o Macrocryst 00:00: mouth [place] (MACROBID) 00 daily. Medical 100 mg Branch capsule Nitrofurant 0 Yes [id number] 100mg Take 1 Univers oin&Nit. 1-18 capsule by ity o Macrocryst 00:00: mouth [place] (MACROBID) 00 daily. Medical 100 mg Branch capsule Nitrofurant 0 Yes [id number] 100mg Take 1 Univers oin&Nit. 1-18 capsule by ity o f Macrocryst 00:00: mouth [place] (MACROBID) 00 daily. Medical 100 mg Branch capsule Nitrofurant 2021- Yes [id number] 100mg Take 1 Univers oin&Nit. 1-10 01-18 capsule by ity of Macrocryst 00:00: 05:59 mouth 2 [place] (MACROBID) 00 :00 (two) Medical 100 mg times Branch capsule daily for 7 days. Nitrofurant 2021-2021- Yes [id number] 100mg Take 1 Univers oin&Nit. 1-10 01-18 capsule by ity of Macrocryst 00:00: 05:59 mouth 2 [place] as (MACROBID) 00 :00 (two) Medical 100 mg times Branch capsule daily for 7 days. cephALEXin 2020-10- No [id number] 500mg Take 1 Univers 500 mg 11-25 capsule by ity of capsule 00:00: 05:59 mouth 4 [place] 00 :00 (four) Medical times Branch daily for 7 days. cephALEXin 2020-10- No [id number] 500mg Take 1 Univers 500 mg 10-20- capsule by ity of capsule 00:00: 00:00 mouth 2 [place] 00 :00 (two) Medical times Branch daily. Yes Take by Unive rs vit 9-30 mouth. ity of calc,iron,f 14:37: [place] [address] Medical ( Branch VITAMIN ORAL) Yes Take by Unive rs vit 9-30 mouth. ity of calc,iron,f 14:37: [place] [address] Medical ( Branch VITAMIN ORAL) Yes Take by Unive rs vit 9-30 mouth. ity of calc,iron,f 14:37: [place] [address] Medical ( Branch VITAMIN ORAL) Yes Take by Unive rs vit 9-30 mouth. ity of calc,iron,f 14:37: [place] [address] Medical ( Branch VITAMIN ORAL) Yes Take by Unive rs vit 9-30 mouth. ity of calc,iron,f 14:37: [place] [address] Medical ( Branch VITAMIN ORAL) Yes Take by Unive rs vit 9-30 mouth. ity of calc,iron,f 14:37: [place] [address] Medical ( Branch VITAMIN ORAL) Yes Take by Unive rs vit 9-30 mouth. ity of calc,iron,f 14:37: [place] [address] Medical ( Branch VITAMIN ORAL) Yes Take by Unive rs vit 9-30 mouth. ity of calc,iron,f 14:37: [place] [address] Medical ( Branch VITAMIN ORAL) Yes Take by Unive rs vit 9-30 mouth. ity of calc,iron,f 14:37: [place] [address] Medical ( Branch VITAMIN ORAL) Yes Take by Unive rs vit 9-30 mouth. ity of calc,iron,f 14:37: [place] [address] Medical ( Branch VITAMIN ORAL) Yes Take by Unive rs vit 9-30 mouth. ity of calc,iron,f 14:37: [place] [address] Medical ( Branch VITAMIN ORAL) Yes Take by Unive rs vit 9-30 mouth. ity of calc,iron,f 14:37: [place] [address] Medical ( Branch VITAMIN ORAL) Yes Take by Unive rs vit 9-30 mouth. ity of calc,iron,f 14:37: [place] [address] Medical ( Branch VITAMIN ORAL) Yes Take by Unive rs vit 9-30 mouth. ity of calc,iron,f 14:37: [address] ( Branch VITAMIN ORAL) Yes Take by Unive rs vit 9-30 mouth. ity of calc,iron,f 14:37: [address] ( Branch VITAMIN ORAL) ALBUTEROL 0 Yes Inhale. Unive rs INHALE 6-21 ity of 11:26: [address] ALBUTEROL [address] Yes Inhale. Unive rs INHALE 6-21 ity of 11:26: [address] ALBUTEROL [address] Yes Inhale. Unive rs INHALE 6-21 ity of 11:26: [address] ALBUTEROL 0 Yes Inhale. Unive rs INHALE 6-21 ity of 11:26: [address] ALBUTEROL 2018-0 Yes Inhale. Unive rs INHALE 6-21 ity of 11:26: [address] ALBUTEROL 2018-0 Yes Inhale. Unive rs INHALE 6-21 ity of 11:26: [address] ALBUTEROL 2018-0 Yes Inhale. Unive rs INHALE 6-21 ity of 11:26: [address] ALBUTEROL 2018-0 Yes Inhale. Unive rs INHALE 6-21 ity of 11:26: [address] ALBUTEROL 2018-0 Yes Inhale. Unive rs INHALE 6-21 ity of 11:26: [address] ALBUTEROL 2018-0 Yes Inhale. Unive rs INHALE 6-21 ity of 11:26: [address] ALBUTEROL 2018-0 Yes Inhale. Unive rs INHALE 6 ity of 11:26: [address] Immunizations Ordered Filled Immunization Date Status Comments [facility] Immunization Name Name [facility] 2016-07-04 Completed University of 00:00:00 [facility] Influenza Virus 2016-07-04 Completed Universit y of Vaccine Quad IM 3+ 00:00:00 [facility] TDAP 2016-07-04 Completed University of 00:00:00 [facility] Influenza Virus 2016-07-04 Completed Universit y of Vaccine Quad IM 3+ 00:00:00 [facility] TDAP 2016-07-04 Completed University of 00:00:00 [facility] Influenza Virus 2016-07-04 Completed Universit y of Vaccine Quad IM 3+ 00:00:00 [facility] 2016-07-04 Completed University of 00:00:00 [facility] Influenza Virus 2016-07-04 Completed Universit y of Vaccine Quad IM 3+ 00:00:00 [facility] TDAP 2016-07-04 Completed University of 00:00:00 [facility] Influenza Virus 2016-07-04 Completed Universit y of Vaccine Quad IM 3+ 00:00:00 [facility] TDAP 2016-07-04 Completed University of 00:00:00 [facility] Influenza Virus 2016-07-04 Completed Universit y of Vaccine Quad IM 3+ 00:00:00 [facility] TDAP 2016-07-04 Completed University of 00:00:00 [facility] Influenza Virus 2016-07-04 Completed Universit y of Vaccine Quad IM 3+ 00:00:00 [facility] TDAP 2016-07-04 Completed University of 00:00:00 [facility] Influenza Virus 2016-07-04 Completed Universit y of Vaccine Quad IM 3+ 00:00:00 [facility] TDAP 2016-07-04 Completed University of 00:00:00 [facility] Influenza Virus 2016-07-04 Completed Universit y of Vaccine Quad IM 3+ 00:00:00 [facility] TDAP 2016-07-04 Completed University of 00:00:00 [facility] Influenza Virus 2016-07-04 Completed Universit y of Vaccine Quad IM 3+ 00:00:00 [facility] TDAP 2016-07-04 Completed University of 00:00:00 [facility] Influenza Virus 2016-07-04 Completed Universit y of Vaccine Quad IM 3+ 00:00:00 [facility] TDAP 2016-07-04 Completed University of 00:00:00 [facility] Influenza Virus 2016-07-04 Completed Universit y of Vaccine Quad IM 3+ 00:00:00 [facility] TDAP 2016-07-04 Completed University of 00:00:00 [facility] Influenza Virus 2016-07-04 Completed Universit y of Vaccine Quad IM 3+ 00:00:00 [facility] TDAP 2016-07-04 Completed University of 00:00:00 [facility] Influenza Virus 2016-07-04 Completed Universit y of Vaccine Quad IM 3+ 00:00:00 [facility] TDAP 2016-07-04 Completed University of 00:00:00 [facility] Influenza Virus 2016-07-04 Completed Universit y of Vaccine Quad IM 3+ 00:00:00 [facility] MMR 2014-07-27 Completed University of 00:00:00 [facility] MMR 2014-07-27 Completed University of 00:00:00 [facility] MMR 2014-07-27 Completed University of 00:00:00 [facility] MMR 2014-07-27 Completed University of 00:00:00 [facility] MMR 2014-07-27 Completed University of 00:00:00 [facility] MMR 2014-07-27 Completed University of 00:00:00 [facility] MMR 2014-07-27 Completed University of 00:00:00 [facility] MMR 2014-07-27 Completed University of 00:00:00 [facility] MMR 2014-07-27 Completed University of 00:00:00 [facility] MMR 2014-07-27 Completed University of 00:00:00 [facility] MMR 2014-07-27 Completed University of 00:00:00 [facility] MMR 2014-07-27 Completed University of 00:00:00 [facility] MMR 2014-07-27 Completed University of 00:00:00 [facility] MMR 2014-07-27 Completed University of 00:00:00 [facility] MMR 2014-07-27 Completed University of 00:00:00 [facility] Td 2009-05-25 Completed University of 00:00:00 [facility] Td 2009-05-25 Completed University of 00:00:00 [place] [facility] Td 2009-05-25 Completed University of 00:00:00 [place] [facility] Td 2009-05-25 Completed University of 00:00:00 [place] [facility] Td 2009-05-25 Completed University of 00:00:00 [place] [facility] Td 2009-05-25 Completed University of 00:00:00 [place] [facility] Td 2009-05-25 Completed University of 00:00:00 [place] [facility] Td 2009-05-25 Completed University of 00:00:00 [place] [facility] Td 2009-05-25 Completed University of 00:00:00 [place] [facility] Td 2009-05-25 Completed University of 00:00:00 [place] [facility] Td 2009-05-25 Completed University of 00:00:00 [place] [facility] Td 2009-05-25 Completed University of 00:00:00 [place] [facility] Td 2009-05-25 Completed University of 00:00:00 [facility] Branch Td 2009-05-25 Completed University of 00:00:00 [facility] Branch Td 2009-05-25 Completed University of 00:00:00 [facility] Vital Signs Vital Name Observation Time Observation Value Comments Source Systolic blood 2021-12-28 15:18:00 103 mm[Hg] Univer sity of pressure [facility] Diastolic blood 2021-12-28 15:18:00 67 mm[Hg] Unive rsity of [facility] Heart rate 2021-12-28 15:18:00 70 /min [facility] Body temperature 2021-12-28 15:18:00 36.56 Melvi [facility] Respiratory rate 2021-12-28 15:18:00 18 /min [facility] Body height 2021-12-28 15:18:00 165.1 cm [facility] Body weight 2021-12-28 15:18:00 74.844 kg [facility] BMI 2021-12-28 15:18:00 27.46 kg/m2 [facility] Systolic blood 2021-12-14 19:07:00 126 mm[Hg] Univer sity of pressure [facility] Diastolic blood 2021-12-14 19:07:00 79 mm[Hg] Unive rsity of pressure [facility] Heart rate 2021-12-14 19:07:00 96 /min Universi ty of [place] [facility] Body temperature 2021-12-14 19:07:00 36.67 Melvi Univ ersity of [place] [facility] Respiratory rate 2021-12-14 19:07:00 18 /min Univ ersity of [place] [facility] Body height 2021-12-14 19:07:00 165.1 cm Universi ty of [place] [facility] Body weight 2021-12-14 19:07:00 75.569 kg Universi ty of [place] [facility] BMI 2021-12-14 19:07:00 27.72 kg/m2 Universi ty of [place] [facility] Systolic blood 2021-11-16 20:04:00 107 mm[Hg] Univer sity of pressure [place] [facility] Diastolic blood 2021-11-16 20:04:00 69 mm[Hg] Unive rsity of pressure [place] [facility] Heart rate 2021-11-16 20:04:00 66 /min Universi ty of [place] [facility] Body temperature 2021-11-16 20:04:00 36.44 Melvi Univ ersity of [place] [facility] Respiratory rate 2021-11-16 20:04:00 18 /min Univ ersity of [place] [facility] Body height 2021-11-16 20:04:00 165.1 cm Universi ty of [place] [facility] Body weight 2021-11-16 20:04:00 72.576 kg Universi ty of [place] [facility] BMI 2021-11-16 20:04:00 26.63 kg/m2 Universi ty of [place] [facility] Systolic blood 2021-10-19 20:38:00 110 mm[Hg] Univer sity of pressure [place] [facility] Diastolic blood 2021-10-19 20:38:00 73 mm[Hg] Unive rsity of pressure [place] [facility] Heart rate 2021-10-19 20:38:00 82 /min Universi ty of [place] [facility] Body temperature 2021-10-19 20:38:00 36.44 Melvi Univ ersity of [place] [facility] Respiratory rate 2021-10-19 20:38:00 18 /min Univ ersity of [place] [facility] Body height 2021-10-19 20:38:00 165.1 cm Universi ty of [place] [facility] Body weight 2021-10-19 20:38:00 70.761 kg Universi ty of [place] [facility] BMI 2021-10-19 20:38:00 25.96 kg/m2 Universi ty [facility] Systolic blood 2021-09-21 18:32:00 111 mm[Hg] Univer sity of pressure [facility] Branch Diastolic blood 2021-09-21 18:32:00 74 mm[Hg] Unive rsity of pressure [facility] Heart rate 2021-09-21 18:32:00 60 /min Universi ty [facility] Body temperature 2021-09-21 18:32:00 36.89 Melvi [facility] Respiratory rate 2021-09-21 18:32:00 18 /min [facility] Body height 2021-09-21 18:32:00 165.1 cm Universi ty [facility] Body weight 2021-09-21 18:32:00 68.629 kg Universi ty [facility] BMI 2021-09-21 18:32:00 25.18 kg/m2 [facility] Procedures Procedure Date / Time Performing Clinician Source Performed POCT URINALYSIS W/O 2021-12-28 15:29:00 [facility] SPECIFIC [facility] EXTERNAL PROVIDER 2021-12-24 05:01:00 Doctor Unassigned, No Univ ersity [facility] RECORDS Name Medical Branch POCT URINALYSIS W/O 2021-12-14 20:08:00 Allen Ayala [facility] GRAVITY [facility] EXTERNAL PROVIDER 2021-12-14 06:01:00 Doctor Unassigned, No [facility] [place] [facility] REC[facility] Name Medical Branch 2 HR GLUCOSE TOLERANCE 2021-11-16 17:40:00 [facility] GLUCOSE TOLERANCE 2021-11-16 16:38:00 [facility] FASTING 2021-11-16 15:38:00 Kiki Urbano o f [facility] GLYCOSYLATED HEMOGLOBIN 2021-11-16 15:38:00 [facility] [place] [facility] POCT URINALYSIS W/O 2021-11-16 00:00:[address] [facility] [place] [place] SPECIFIC GRAVITY [facility] POCT URINALYSIS W/O 2021-10-19 00:00:00 Allen Ayala Universi ty [facility] GRAVITY [facility] POCT URINALYSIS W/O 2021-09-21 18:38:00 Allen Ayala Universi ty [facility] GRAVITY [facility] Encounters Start End Encounter Admission Attending Care Care Encounter Source Date/Time Date/Time Type Type Clinicians Facility Department ID 2022-01-11 2022-01-11 Outpatient R DANIELA AYALAEN [facility] [id number] Univers 14:30:00 14:30:[id number] [facility] 2022-01-01 2022-01-01 Outpatient R NII ORELLANA [facility] [id number] Univers 15:00:00 15:00:00 NII ORELLANA [id number] [facility] 2022-01-01 2022-01-01 Outpatient R NII ORELLANA [facility] [id number] Univers 15:00:00 15:00:[address] [facility] 2021-12-28 2021-12-28 Outpatient R NII ORELLANA [facility] B [id number] Univers 10:00:00 10:38:[address] [facility] 2021-12-28 2021-12-28 [facility] 1.2.840.114 [id number] Univers 10:00:00 10:38:46 Nii CABRERA [id number] i ty of Visit WOMEN'S [id number] [facility] [id number] [place] [address] Branch 2021-12-28 2021-12-28 Outpatient R NII ORELLANA [facility] B [id number] Univers 10:00:00 10:00:00 NII ORELLANA [id number] [facility] 2021-12-24 2021-12-24 Outpatient R CLARITA [facility] [id number] Univers 15:00:00 15:00:00 TANNER [id number] ity o f [facility] 2021-12-24 2021-12-24 Orders Doctor CORTNEY [id number] Univers 00:00:00 00:00:00 Only Unassigned, LU [id number] ity of [facility] [id number] [place] as [id number] [address] 2021-12-14 2021-12-14 Outpatient R LUCY [facility] [id number] Univers 12:45:00 13:30:47 ity of [facility] 2021-12-14 2021-12-14 Routine Lucy [facility] [id number] Univers 12:45:00 13:30:47 Cam DEBORAH [id number] i ty of Visit [place] [id number] [place] [facility] [id number] [address] 2021-12-14 2021-12-14 Outpatient R LUCY [facility] [id number] Univers 12:45:00 12:45:00 [id number] ity of [facility] 2021-12-14 2021-12-14 Orders Doctor CORTNEY 1.2.840.114 [id number] Univers 00:00:00 00:00:00 Only Unassigned, LU [id number] ity of [facility] 4.2.7.2.686 [place] as [id number] [address] 2021-12-03 2021-12-03 Telephone Allen Ayala [facility] 1.2.840.114 [id number] Univers 00:00:00 00:00:00 Cam LISA [id number] i ty of [place] [id number] [place] [id number] [address] 2021-11-20 2021-11-20 Telephone Allen Ayala [facility] 1.2.840.114 [id number] Univers 00:00:00 00:00:00 Cam [place] [id number] i ty of [place] [id number] [place] [id number] Az dical NAL [address] [facility] 2021-11-16 2021-11-16 Outpatient R LUCY [facility] [id number] Univers 14:00:00 14:35:07 ity of [facility] 2021-11-16 2021-11-16 Routine Lucy [facility] 1.2.840.114 [id number] Univers 14:00:00 14:35:07 Gary CABRERA [id number] i ty of Visit [place] [id number] [place] [id number] [address] 2021-11-16 2021-11-16 [place] Operator Josiah, Katerin Lab Main [facility] 1.2.8 [id number] Univers 10:45:00 11:00:00 Visit Kiki Urbano [id number] [facility] [id number] [id number] Az dical NAL [address] [facility] 2021-11-16 2021-11-16 Outpatient R LUCY [facility] [id number] Univers 10:45:00 10:45:00 [id number] ity [facility] 2021-11-01 2021-11-01 Telephone Lucy [facility] 1.2.840.114 [id number] Univers 00:00:00 00:00:00 Gary CABRERA [id number] it y [id number] [facility] [id number] [address] 2021-10-22 2021-10-22 Case Lucy [facility] 1.2.840.114 [id number] Univers 00:00:00 00:00:00 Management Gary CABRERA [id number] ity of [place] [id number] [id number] [address] 2021-10-22 2021-10-22 Telephone Lucy [facility] 1.2.840.114 [id number] Univers 00:00:00 00:00:00 Gary CABRERA [id number] it y of [place] [id number] [id number] [address] 2021-10-19 2021-10-19 Outpatient R LUCY ALLEN [facility] [id number] Univers 14:30:00 14:50:20 ity of [facility] 2021-10-19 2021-10-19 Routine Lucy Allen [facility] GONZALEZ 1.2.840.114 [id number] Univers 14:30:00 14:50:20 Cam DEBORAH [id number] i ty of Visit [place] [id number] [id number] [address] 2021-10-18 2021-10-18 [place] [facility] 1.2 .840.114 [id number] Univers 14:45:00 15:37:27 Visit Leana Wright [facility] [id number] ity of [facility] [id number] Fausto as MATERNAL [phone] Med ical & CHILD [address] [place] [address] 2021-10-18 2021-10-18 Outpatient R [facility] [id number] Univers 14:45:00 14:45:00 [id number] ity [facility] 2021-10-18 2021-10-18 [facility] [id number] Univers 14:45:00 14:45:00 [facility] 2021-09-24 2021-09-24 [facility] [id number] Univers 00:00:00 00:00:00 Management Kiki GONZALEZ [id number] ity [facility] [id number] [id number] [place]ical [address] 2021-09-21 2021-09-21 Routine Allen Ayala [facility] LISA [id number] Univers 12:10:28 12:51:16 Gary CABRERA [id number] i ty of Visit [facility] [id number] [id number] [facility] [address] Results Test Description Test Time Test Comments Results Result Comments Source POCT URINALYSIS W/O SPECIFIC GRAVITY 2021-12-28 15:29:00 Test Item Value Reference Range Interpretation Comme [...] code = 3257) n/a Negative - Negative [facility] [id number] 20:09:00 Test Item Value Reference Range Interpretation Comments [...] Negative Lab Interpretation (test code = Normal 96991-0) [facility] [id number] 20:19:00 Test Item Value Reference Range Interpretation Comments [...] code = 3257) n/a Negative - Negative [facility] [id number] 21:52:00 Test Item Value Reference Range Interpretation [...] code = 3257) N/A Negative - Negative [facility] [id number] 18:38:00 Test Item Value Reference Range Interpretation [...] Negative Lab Interpretation (test code = Normal 98663-2) [facility]
[2021-12-31] MEDS ORDERED: ADENOSINE 6 MG/ 2ML VIAL IV ONE (11:46)
[2021-12-31 12:10] LABS: Absolute Lymphocytes (CBC) 2.4 K/uL (0.7-4.9); Hematocrit 34.1 % (36.0-45.0); Lymphocytes % 23.1 % (15.3-44.8); MPV 9.1 fL (7.6-11.3); RBC Red Blood Cell Count 4.38 M/uL (3.86-4.86)
[2021-12-31 12:23] LABS: Potassium 3.9 mmol/L (3.5-5.1)
--- NOTE | 2021-12-31 12:57 | RAD REPORT ---
EXAM DESCRIPTION: US - OB Limited - 12/31/2021 12:41 pm CLINICAL HISTORY: pelvic pain Abdominal pain COMPARISON: No comparisons FINDINGS: This a limited obstetrical sonogram was performed. A single cephalic presenting gestation is identified. Heart rate normal. Normal amniotic fluid volume . Estimated gestational age is 29 weeks 1 days with estimated date of delivery 03/17/2022. Prominent vessels of are seen anterior to the placenta which is anteriorly positioned. This this rais es suspicion for possible placenta accreta.
--- NOTE | 2021-12-31 13:53 | ER ---
Nurse's Notes [facility] Name: Lizbeth Vera Age: 26 yrs Sex: Female : 1995 Arrival Date: 12/31/2021 Time: 11:40 Bed 4 Private MD: Diagnosis: Supraventricular tachycardia;Abdominal pain, unspecified Presentation: 12/31 11:40 Chief complaint: Patient states: Sudden onset of shortness of breath while at work with ss chest tightness and RLQ pain. Pt is 30 weeks . Was seen and treated in ED for SVT. HR upon arrival is 170. Coronavirus screen: Client denies travel out of the [place] in the last 14 days. Ebola Screen: Patient denies exposure to infectious person. Patient denies travel to an Ebola-affected area in the 21 days before illness onset. Initial Sepsis Screen: Does the patient meet any 2 criteria? No. Patient's initial sepsis screen is negative. Does the patient have a suspected source of infection? No. Patient's initial sepsis screen is negative. Risk Assessment: Do you want to hurt yourself or someone else? Patient reports no desire to harm self or others. Onset of symptoms was December 31, 2021. 11:40 Method Of Arrival: EMS: [facility] 11:40 Acuity: WANG 1 ss Triage Assessment: 11:50 General: Appears uncomfortable, Behavior is cooperative, anxious. Pain: Complains of [place] pain in right lower quadrant. Respiratory: Reports shortness of breath Onset: The symptoms/episode began/occurred this morning, the patient has moderate shortness of breath. 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 - Social history:: Smoking status: . Screenin:57 Abuse screen: Denies threats or abuse. Denies injuries from another. Nutritional [place] screening: No deficits noted. Tuberculosis screening: No symptoms or risk factors identified. Fall Risk IV access (20 points). Assessment: 11:58 Cardiovascular: Rhythm is SVT. Respiratory: Airway is patent Respiratory effort is [place] even, Breath sounds are clear bilaterally. Vital Signs: 11:40 BP 113 / 90; Pulse 170; Resp 24; Pulse Ox 97% ; Weight 74.84 kg; Height 5 ft. 5 in. [place] (165.10 cm); 11:42 BP 106 / 72; ss 11:42 Resp 22; Pulse Ox 100% on R/A; ss 13:23 BP 117 / 90; Pulse 96; Resp 18; Pulse Ox 100% on R/A; [place] 11:40 Body Mass Index 27.46 (74.84 kg, 165.10 cm) [place] ED Course: 11:40 Patient arrived in ED. ss 11:42 Triage completed. ss 11:43 Angel Fall MD is Attending Physician. kdr 11:47 Patient has correct armband on for positive identification. Placed in gown. Bed in low mh5 position. Call light in reach. Side rails up X 1. Adult w/ patient. Warm blanket given. vp of marketing on. Pulse ox on. NIBP on. 11:50 Agustin Heard PA is PHCP. [facility] 11:50 Arm band placed on. [place] 11:53 Basic Metabolic Panel Sent. [place] 11:53 CBC with Diff Sent. [place] 11:53 Troponin HS Sent. [place] 11:57 No provider procedures requiring assistance completed. Maintain EMS IV. Gauge \T\ site: [place] 20g LAC. 12:01 L\T\D AT BEDSIDE TO MONITOR FOR FHT AND CONTRACTIONS. [facility] 12:41 OB Limited In Process Unspecified. EDMS 15:11 Patient did not have IV access during this emergency room visit. [place] Administered Medications: 11:51 Drug: Adenosine 6 mg Route: IVP; Site: left antecubital; [place] 11:51 Follow up: Response: No adverse reaction [place] Outcome: 13:53 ER care complete, transfer ordered by . [facility] 15:11 Discharged to home ambulatory. [place] 15:11 Condition: good 15:11 Discharge instructions given to patient, Prescriptions given X 1. 15:11 Transferred by ground EMS to [facility]. [place] 15:11 Condition: stable 15:11 Instructed on the need for transfer. 15:15 ER care complete, transfer ordered by . [place] 15:15 Patient left the ED. [place] Signatures: Dispatcher [employer] EDMS Angel Fall MD MD kdr Mickail, Joel, PA PA jmm Smirch, Shelby, RN Alvina Snider mh5 Samanta Louise RN RN jh6 Ciara Alvarez RN RN [place] Corrections: (The following items were deleted from the chart) 11:49 11:40 Pulse 170bpm; sherry [place]
--- NOTE | 2021-12-31 13:53 | EDPHYS ---
Physician Documentation [facility] Name: Lizbeth Vera Age: 26 yrs Sex: Female : 1995 Arrival Date: 12/31/2021 Time: 11:40 Bed 4 Private MD: ED Physician Angel Fall HPI: 12/31 11:50 This 26 yrs old Female presents to ER via EMS with complaints of Shortness Of jmm Breath. 11:50 The patient has shortness of breath at rest. Onset: The symptoms/episode began/occurred jmm gradually, today. Duration: The symptoms are continuous. The patient's shortness of breath is aggravated by nothing, is alleviated by nothing. This is a G2, P1 that presents to the ED with complaints of shortness of breath beginning just prior to arrival along with lower abdominal pain which radiates to her lower back. Denies vomiting, diarrhea, vaginal leakage or bleeding. . 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 - Social history:: Smoking status: . ROS: 11:50 Respiratory: Positive for shortness of breath. jmm 11:50 Abdomen/GI: Positive for abdominal pain. 11:50 : Positive for pelvic pain, Negative for vaginal bleeding, vaginal discharge. 11:50 All other systems are negative. Exam: 11:50 Constitutional: This is a well developed, well nourished patient who is awake, alert, jmm and in no acute distress. Head/Face: atraumatic. Eyes: EOMI, no conjunctival erythema appreciated ENT: Moist Mucus Membranes Neck: Trachea midline, Supple Chest/axilla: Normal chest wall appearance and motion. Cardiovascular: Regular rate and rhythm. No edema appreciated Respiratory: Normal respirations, no respiratory distress appreciated Abdomen/GI: Non distended, soft Back: Normal ROM Skin: General appearance color normal MS/ Extremity: Moves all extremities, no obvious deformities appreciated, no edema noted to the lower extremities Neuro: Awake and alert Psych: Behavior is normal, Mood is normal, Patient is cooperative and pleasant Vital Signs: 11:40 BP 113 / 90; Pulse 170; Resp 24; Pulse Ox 97% ; Weight 74.84 kg; Height 5 ft. 5 in. [place] (165.10 cm); 11:42 BP 106 / 72; ss 11:42 Resp 22; Pulse Ox 100% on R/A; ss 13:23 BP 117 / 90; Pulse 96; Resp 18; Pulse Ox 100% on R/A; [place] 11:40 Body Mass Index 27.46 (74.84 kg, 165.10 cm) [place] MDM: 11:50 Patient medically screened. [facility] 13:49 Data reviewed: vital signs, nurses notes. Counseling: I had a detailed discussion with rea the patient and/or guardian regarding: the historical points, exam findings, and any diagnostic results supporting the discharge/admit diagnosis, lab results, the need to transfer to another facility. ED course: This is a 26-year-old female G2, P1 that presents ED with sudden onset shortness of breath lower abdominal/pelvic pain. Patient presented with a heart rate around 170 bpm. EKG revealed SVT. 6 mg adenosine was administered which did cardiovert the patient. Patient continued to have lower abdominal pain. Labor and delivery evaluated the patient revealed contractions approximately every 3 to 4 minutes. Cervix was checked, is currently closed. Ultrasound did not reveal any acute process. Labs otherwise unremarkable. I discussed the patient with the physician care team assistant for Dr. Pedroza who recommended transfer to [facility]. I discussed the patient with the on-call CORROSION CONTROL TECHNICIAN for [facility] whom accepted the patient to the labor and delivery unit. I discussed this with the family, they initially some apprehension due to the lack of their trusted CORROSION CONTROL TECHNICIAN. Is recommended, the patient would need a NICU in case of a delivery. Family and patient ended up agreeing with the plan of care.. 12/31 11:52 Order name: Basic Metabolic Panel; Complete Time: 12:23 [facility] 12/31 11:52 Order name: CBC with Diff; Complete Time: 12:20 [facility] 12/31 11:52 Order name: Troponin HS; Complete Time: 12:23 [facility] 12/31 11:56 Order name: TSH [facility] 12/31 13:09 Order name: COVID-19 SARS RT PCR (Document "Date of Onset" if Symptomatic); Complete ss Time: 14:44 12/31 11:52 Order name: EKG; Complete Time: 11:52 [facility] 12/31 11:52 Order name: Cardiac monitoring; Complete Time: 11:53 [facility] 12/31 11:52 Order name: IV Saline Lock; Complete Time: 11:53 [facility] 12/31 11:52 Order name: Labs collected and sent; Complete Time: 11:53 [facility] 12/31 11:52 Order name: O2 Per Protocol; Complete Time: 11:53 [facility] 12/31 11:52 Order name: O2 Sat Monitoring; Complete Time: 11:54 [facility] 12/31 12:20 Order name: OB Limited; Complete Time: 12:59 [facility] 12/31 11:57 Order name: Urine Dipstick-Ancillary (obtain specimen) [facility] Administered Medications: 11:51 Drug: Adenosine 6 mg Route: IVP; Site: left antecubital; [place] 11:51 Follow up: Response: No adverse reaction [place] Disposition: 18:15 Co-signature as Attending Physician, Angel Fall MD I agree with the assessment and kdr plan of care. Disposition Summary: 12/31/21 15:15 Transfer Ordered Accepting Physician: xxx(12/31/21 15:15) [place] [facility] [place] Reason: Higher level of care(12/31/21 15:15) [place] Condition: Stable(12/31/21 15:15) [place] Diagnosis - Supraventricular tachycardia(12/31/21 15:15) [place] - Abdominal pain, unspecified [place] Forms: - Medication Reconciliation Form [place] - SBAR form [place] Signatures: Dispatcher [employer] EDWI Angel Fall MD MD kdr Mickail, Joel, PA PA jmm Au-Stager, Heather RN RN [place] Corrections: (The following items were deleted from the chart) 12:20 12:19 1st Trimest Single 1st Fetus+US.RAD.BRZ ordered. EDWI EDWI 15:11 13:53 Dr. Phelan [facility] [place] 15:11 13:53 [facility] [place] 15:11 13:53 Higher level of care [facility] [place] 15:11 13:53 Stable [facility] [place] 15:11 13:53 an acute exacerbation [facility] [place] 15:11 13:53 have improved [facility] [place] 15:11 13:53 Lower abdominal pain, unspecified [facility] [place] 15:11 13:53 Supraventricular tachycardia jmm [place]
[2021-12-31 15:26] LABS: Thyroid Stimulating Hormone 6.27 uIU/mL (0.360-3.740)
[2021-12-31 15:32] VITALS: O2SAT 100
[2021-12-31 15:34] VITALS: BP 117/90
--- NOTE | 2022-01-01 08:45 | EKG ---
Test Date: 2021-12-31 Test Time: 14:10:23 Tag Machine Operator: DHARA MEASUREMENT RESULTS: Intervals: Rate: 104 WV: 122 QRSD: 76 QT: 352 QTc: 462 [place]: P: 78 WV: 122 QRS: 81 T: 32 INTERPRETIVE STATEMENTS: Sinus tachycardia Otherwise normal ECG Compared to ECG 11/30/2021 11:14:15 ST (T wave) deviation no longer present Electronically Signed On 01-01-22 08:42:21 CDT by Angelo Friedman
--- NOTE | 2022-01-01 08:46 | EKG ---
Test Date: 2021-12-31 Test Time: 11:40:27 Filter Press Tender: LUCIEN MEASUREMENT RESULTS: Intervals: Rate: 164 [place]: QRSD: 70 QT: 270 QTc: 445 [place]: P: NH: QRS: 88 T: -17 INTERPRETIVE STATEMENTS: Supraventricular tachycardia with occasional premature ventricular complexes Marked ST abnormality, possible inferior subendocardial injury Abnormal ECG Compared to ECG 11/30/2021 11:14:15 Ventricular premature complex(es) now present Sinus tachycardia no longer present ST (T wave) deviation still present Electronically Signed On 01-01-22 08:42:29 CDT by Angelo Friedman
--- NOTE | 2022-01-01 08:46 | EKG ---
Test Date: 2021-12-31 Test Time: 11:44:00 Station Engineer: LUCIEN MEASUREMENT RESULTS: Intervals: Rate: 95 PA: 152 QRSD: 70 QT: 344 QTc: 432 [place]: P: 77 PA: 152 QRS: 89 T: 53 INTERPRETIVE STATEMENTS: Normal sinus rhythm Nonspecific ST abnormality Abnormal ECG Compared to ECG 12/31/2021 11:40:27 Supraventricular tachycardia no longer present Ventricular premature complex(es) no longer present ST (T wave) deviation still present Electronically Signed On 01-01-22 08:42:28 CDT by Angelo Friedman
== END 2021-12-31 15:15 | disposition short-term general hospital (02) ==
LOC: ER 11:39
DX: O99.413 Diseases of the circulatory system complicating pregnancy, third trimester (principal); I47.1 Supraventricular tachycardia; O26.893 Other specified pregnancy related conditions, third trimester; Z3A.30 30 weeks gestation of pregnancy; Z20.822 Contact with and (suspected) exposure to COVID-19; Z88.0 Allergy status to penicillin
CPT/HCPCS: 93005 ×3; 85025; 80048; 36415; 84443; 84484; 84439; 76815; 96374; 99291; 99292; U0003; J0153

== ENCOUNTER 2024-06-21 17:56 | Emergency (ER) | payer BC ==
--- OUTSIDE RECORDS SUMMARY | 2024-06-21 18:01 | XMS REPORT | Continuity of Care Document ---
Author Name Unknown Address [address] [facility]. 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 Ordering Clinician Indication Dosage Frequency Signature (SIG) Comments Components Source TAKE 1 TABLET BY MOUTH EVERY DAY 3-04 00:00: 00 Yes 10 Arnold Horne TAKE 1 TABLET BY MOUTH EVERY 6 HOURS WITH FOOD OR MILK NEEDED FOR PAIN 2-27 00:00: 00 Yes Arnold Horne FLUCONAZOLE 200 MG TABS 2-02 00:00: 00 Yes Arnold Horne INSERT 1 APPLICATOR INTO VAGINA AT BEDTIME FOR 7 DAYS 2-01 00:00: 00 Yes Arnold Horne TAKE 1 TABLET BY MOUTH EVERY 6 HOURS NEEDED FOR ITCHING 1-31 00:00: 00 Yes Arnold Horne INSTILL 1 DROP INTO LEFT EYE 4 TIMES DAILY. 1-19 00:00: 00 -14 00:00 :00 No 1 Arnold Horne BUSPIRONE HYDROCHLORI DE 10 MG TABS 1-09 00:00: 00 Yes Arnold Horne TAKE 2 TABLETS BY MOUTH EVERY DAY NEEDED FOR CONSTIPATIO N 2022-10 2-15 00:00: 00 Yes Arnold Horne TAKE 1 TABLET BY MOUTH IN THE MORNING AND IN THE EVENING 2022-1015 00:00: 00 Yes Arnold Horne METOPROLOL TARTRATE 25 MG TABS 2022-10 2-13 00:00: 00 Yes Arnold Horne BUSPIRONE HYDROCHLORI DE 7.5 MG TABS 2022-10 1-17 00:00: 00 Yes Arnold Horne TAKE 1 CAPSULE TWICE DAILY. 2022-10-15 00:00: 00 02-23 00:00 :00 No 75 Arnold Horne TAKE 1 CAPSULE BY MOUTH IN THE MORNING AND 1 CAPSULE IN THE EVENING FOR 5 DAYS 2022-10 00:00: 00 Yes Arnold Horne VENTOLIN HFA 108 (90 Base) MCG/ACT AERS 2022-10 00:00: 00 Yes Arnold Horne HYDROXYCHLO ROQUINE SULFATE 200 MG TABS - 00:00: 00 Yes Arnold Horne INSERT 1 APPLICATORF UL INTRAVAGINA LLY AT BEDTIME NIGHTLY. - 00:00: 00 02-23 00:00 :00 No 2 Arnold Horne TAKE 1 TABLET NOW AND 1 IN 3 DAYS -15 00:00: 00 02-23 00:00 :00 No 150 Arnold Horne TAKE 1 TABLET BY MOUTH EVERY DAY - 00:00: 00 Yes Arnold Horne PREDNISONE 10 MG TABS 5-04 00:00: 00 Yes Arnold Horne ENBREL SURECLICK 50 MG/ML SOAJ 2-27 00:00: 00 Yes Arnold Horne TAKE 1 TABLET TWICE DAILY WITH FOOD. 2-20 00:00: 00 02-23 00:00 :00 No [id number] Arnold Horne TAKE 1 TABLET DAILY. 2-16 00:00: 00 02-23 00:00 :00 No 10 Arnold Horne INJECT 1.2 MG SUBCUTANEOU SLY EVERY DAY 2-10 00:00: 00 02-23 00:00 :00 No 183 Arnold Horne INJECT 0.6MG SUBCUTANEOU SLY DAILY 1-13 00:00: 00 02-23 00:00 :00 No 183 Arnold Horne TAKE [id number] IU WEEKLY WITH A MEAL FOR 12 WEEKS 2021-10 2-08 00:00: 00 02-23 00:00 :00 No [id number] Arnold Horne APPLY SPARINGLY TO THE AFFECTED AREA(S) TWICE DAILY. 2021-10 2 00:00: 00 02-23 00:00 :00 No 3 Arnold Horne VENTOLIN HFA 108 (90 Base) MCG/ACT AERS 18 00:00: 00 Yes Arnold Horne TAKE 1 CAPSULE BY MOUTH TWICE DAILY 05-29 00:00: 00 Yes Arnold Horne TAKE 6 TABLETS BY MOUTH EVERY WEEK 05-24 00:00: 00 Yes Arnold Horne PREDNISONE 2.5 MG TABS 05-24 00:00: 00 Yes Arnold Horne IBUPROFEN 800 MG TABS 8- 00:00: 00 Yes Arnold Horne NORETHINDRO NE 0.35 MG TABS 03-29 00:00: 00 Yes Arnold Horne TAKE 1 TABLET BY MOUTH DAILY - 00:00: 00 Yes Arnold Horne VENTOLIN HFA 108 (90 Base) MCG/ACT AERS - 00:00: 00 Yes Arnold Horne METOPROLOL SUCCINATE ER 25 MG TB24 3-22 00:00: 00 Yes Arnold Horne OSELTAMIVIR PHOSPHATE 75 MG - 00:00: 00 Yes Arnold Horne Immunizations Ordered Immunization Name Filled Immunization Name Date Status Comments Source (Old, dont use) Moderna Covid-19 Vaccine (Aged 12 years and older) (Epic Director) (Old, dont use) Moderna Covid-19 Vaccine (Aged 12 years and older) (Epic Director) 2022-06-28 00:00:00 Completed Arnold Horne (Old, dont use) Moderna Covid-19 Vaccine (Aged 12 years and older) (Epic Director) (Old, dont use) Moderna Covid-19 Vaccine (Aged 12 years and older) (Epic Director) 2022-05-24 00:00:00 Completed Arnold Horne Td(adult) unspecified fo Td(adult) unspecified fo 2001-05-23 00:00:00 Completed Arnold Horne varicella varicella 2000-06-23 00:00:00 Completed Arnold Horne MMR MMR 1998-02-01 00:00:00 Completed Aronld Horne polio, unspecified formu polio, unspecified formu 1998-02-01 00:00:00 Completed Arnold Horne DTaP, unspecified formul DTaP, unspecified formul 1998-02-01 00:00:00 Completed Arnold Horne Hib, unspecified formula Hib, unspecified formula 1995-04-09 00:00:00 Completed Arnold Horne DTaP, unspecified formul DTaP, unspecified formul 1995-04-09 00:00:00 Dragan Horne MMR MMR 1995-02-05 00:00:00 Completed Arnold Horne Hep B, unspecified formu Hep B, unspecified formu 1994 00:00:00 Completed Arnold Horne Hib, unspecified formula Hib, unspecified formula 1994 00:00:00 Completed Arnold Horne polio, unspecified formu polio, unspecified formu 1994 00:00:00 Dragan Horne DTaP, unspecified formul DTaP, unspecified formul 1994 00:00:00 Dragan Horne Hib, unspecified formula Hib, unspecified formula 1994 00:00:00 Completed Arnold Horne polio, unspecified formu polio, unspecified formu 1994 00:00:00 Completed Arnold Horne DTaP, unspecified formul DTaP, unspecified formul 1994 00:00:00 Completed Arnold Horne Hep B, unspecified formu Hep B, unspecified formu 1994 00:00:00 Completed Arnold Horne Hib, unspecified formula Hib, unspecified formula 1994 00:00:00 Completed Arnold Horne polio, unspecified formu polio, unspecified formu 1994 00:00:00 Completed Arnold Horne DTaP, unspecified formul DTaP, unspecified formul 1994 00:00:00 Completed Arnold Horne Hep B, unspecified formu Hep B, unspecified formu 1994 00:00:00 Completed Arnold Horne Vital Signs Vital Name Observation Time Observation Value Comments S michaela BP Systolic 2023-08-25 09:12:00 103 mm[Hg] Step hen F Ozzie BP Diastolic 2023-08-25 09:12:00 68 mm[Hg] Fuentes phen F Ozzie Weight Measured 2023-08-25 09:12:00 196.00 pounds Arnold F Ozzie Height Measured 2023-08-25 09:12:00 63.78 inches Arnold F Ozzie Body Temperature 2023-08-25 09:12:00 98.30 degrees Arnold F Ozzie Heart Rate 2023-08-25 09:12:00 88.00 /min Angie en F Ozzie Respiratory Rate 2023-08-25 09:12:00 Arnold F Ozzie BP Systolic 2023-08-25 08:47:00 103 mm[Hg] Step hen F Ozzie BP Diastolic 2023-08-25 08:47:00 68 mm[Hg] Fuentes phen F Ozzie Weight Measured 2023-08-25 08:47:00 196.00 pounds Arnold F Ozzie Height Measured 2023-08-25 08:47:00 63.78 inches Arnold F Ozzie Body Temperature 2023-08-25 08:47:00 98.30 degrees Arnold F Ozzie Heart Rate 2023-08-25 08:47:00 88.00 /min Angie en F Ozzie Respiratory Rate 2023-08-25 08:47:00 Arnold F Ozzie BP Systolic 2023-07-24 16:39:00 111 mm[Hg] Step hen F Ozzie BP Diastolic 2023-07-24 16:39:00 71 mm[Hg] Fuentes phen F Ozzie Weight Measured 2023-07-24 16:39:00 190.00 pounds Arnold F Ozzie Height Measured 2023-07-24 16:39:00 63.78 inches Arnold F Ozzie Body Temperature 2023-07-24 16:39:00 98.20 degrees Arnold F Ozzie Heart Rate 2023-07-24 16:39:00 91.00 /min Angie en F Ozzie Respiratory Rate 2023-07-24 16:39:00 Arnold F Ozzie BP Systolic 2023-06-06 16:22:00 125 mm[Hg] Step hen F Ozzie BP Diastolic 2023-06-06 16:22:00 75 mm[Hg] Fuentes phen F Ozzie Weight Measured 2023-06-06 16:22:00 188.00 pounds Arnold F Ozzie Height Measured 2023-06-06 16:22:00 63.78 inches Arnold F Ozzie Body Temperature 2023-06-06 16:22:00 97.60 degrees Arnold F Ozzie Heart Rate 2023-06-06 16:22:00 65.00 /min Angie en F Ozzie Respiratory Rate 2023-06-06 16:22:00 Arnold F Ozzie BP Systolic 2023-04-11 17:44:00 124 mm[Hg] Step hen F Ozzie BP Diastolic 2023-04-11 17:44:00 79 mm[Hg] Fuentes phen F Ozzie Weight Measured 2023-04-11 17:44:00 185.20 pounds Arnold F Ozzie Height Measured 2023-04-11 17:44:00 63.78 inches Arnold F Ozzie Body Temperature 2023-04-11 17:44:00 98.30 degrees Arnold F Ozzie Heart Rate 2023-04-11 17:44:00 64.00 /min Angie en F Ozzie Respiratory Rate 2023-04-11 17:44:00 Arnold F Ozzie BP Systolic 2023-03-27 17:59:00 118 mm[Hg] Step hen F Ozzie BP Diastolic 2023-03-27 17:59:00 76 mm[Hg] Fuentes phen F Ozzie Weight Measured 2023-03-27 17:59:00 186.60 pounds Arnold F Ozzie Height Measured 2023-03-27 17:59:00 63.78 inches Arnold F Ozzie Body Temperature 2023-03-27 17:59:00 98.40 degrees Arnold F Ozzie Heart Rate 2023-03-27 17:59:00 92.00 /min Angie en F Ozzie Respiratory Rate 2023-03-27 17:59:00 Arnold F Ozzie BP Systolic 2022-11-22 17:21:00 131 mm[Hg] Step hen F Ozzie BP Diastolic 2022-11-22 17:21:00 81 mm[Hg] Fuentes phen F Ozzie Weight Measured 2022-11-22 17:21:00 180.80 pounds Arnold F Ozzie Height Measured 2022-11-22 17:21:00 63.78 inches Arnold F Ozzie Body Temperature 2022-11-22 17:21:00 97.70 degrees Arnold F Ozzie Heart Rate 2022-11-22 17:21:00 80.00 /min Angie en F Ozzie Respiratory Rate 2022-11-22 17:21:00 Arnold F Ozzie BP Systolic 2022-10-25 16:07:00 132 mm[Hg] Step hen F Ozzie BP Diastolic 2022-10-25 16:07:00 84 mm[Hg] Fuentes phen F Ozzie Weight Measured 2022-10-25 16:07:00 181.20 pounds Arnold F Ozzie Height Measured 2022-10-25 16:07:00 63.78 inches Arnold F Ozzie Body Temperature 2022-10-25 16:07:00 97.50 degrees Arnold F Ozzie Heart Rate 2022-10-25 16:07:00 88.00 /min Angie en F Ozzie Respiratory Rate 2022-10-25 16:07:00 Arnold F Ozzie BP Systolic 2022-09-12 17:24:00 117 mm[Hg] Step hen F Ozzie BP Diastolic 2022-09-12 17:24:00 76 mm[Hg] Fuentes phen F Ozzie Weight Measured 2022-09-12 17:24:00 177.40 pounds Arnold F Ozzie Height Measured 2022-09-12 17:24:00 63.78 inches Arnold F Ozzie Body Temperature 2022-09-12 17:24:00 Arnold F Ozzie Heart Rate 2022-09-12 17:24:00 69.00 /min Angie en F Ozzie Respiratory Rate 2022-09-12 17:24:00 Arnold F Ozzie BP Systolic 2022-05-23 15:32:00 115 mm[Hg] Step hen F Ozzie BP Diastolic 2022-05-23 15:32:00 75 mm[Hg] Fuentes phen F Ozzie Weight Measured 2022-05-23 15:32:00 171.80 pounds Arnold F Ozzie Height Measured 2022-05-23 15:32:00 63.78 inches Arnold Horne Body Temperature 2022-05-23 15:32:00 Arnold Horne Heart Rate 2022-05-23 15:32:00 69.00 /min Angie Horne Respiratory Rate 2022-05-23 15:32:00 Arnold Horne Encounters Start Date/Time End Date/Time Encounter Type Admission Type Attending [facility] Care Department Encounter ID Source 2024-03-31 16:44:21 2024-03-31 16:44:21 Outpatient SFA SFA [id number] Arnold Horne 2024-03-31 00:00:00 2024-03-31 00:00:00 Outpatient Visit SFA [id number] Arnold Horne 2023-08-25 09:13:06 2023-08-25 09:13:06 Outpatient SFA SFA [id number] Arnold Horne 2023-07-24 16:39:19 2023-07-24 16:39:19 Outpatient SFA SFA [id number] Arnold Horne 2023-06-09 08:24:30 2023-06-09 08:24:30 Outpatient SFA SFA [id number] Arnold Horne 2023-06-06 16:22:02 2023-06-06 16:22:02 Outpatient SFA SFA [id number] Arnold Horne 2023-04-18 08:53:54 2023-04-18 08:53:54 Outpatient SFA [id number] [id number] Arnold Horne 2023-04-11 17:26:30 2023-04-11 17:26:30 Outpatient SFA SFA [id number] Arnold Horne 2022-11-22 17:19:56 2022-11-22 17:19:56 Outpatient SFA SFA [id number] Arnold Horne 2022-10-25 16:04:46 2022-10-25 16:04:46 Outpatient SFA SFA [id number] Arnold Horne 2022-09-12 17:23:58 2022-09-12 17:23:58 Outpatient SFA SFA [id number] Arnold Horne Results Test Description Test Time Test Comments Results Result Co mments Source MATERNAL AFP FOR NTD [id number] 00:00:00* Test Item Value Reference Range Interpretation Comme nts INTERPRETATION (test code = 404644) SCREEN NEGATIVE Neural tube defect risk (mele t code = 16320) 1:5308 Neural tube defect interpretation (test code = 81441) (NOTE) DATE OF (test code = 2660) 1995 MATERNAL WEIGHT (test code = 2657) 190 LBS INITIAL/REPEAT (test code = 608157) INITIAL FAMILY HISTORY OF NTD (test code = 843772) NO INSULIN DEP. DIABETIC (test code = 2659) NO RACE (test code = 2658) SMOKER? (test code = 555908) NO NUMBER OF GESTATIONS (test code = 32390) 1 GESTATIONAL AGE (test code = 2656) 19.4 WEEKS DETERMINED BY: (test code = 2654) LMP DATE OF LMP (test code = 2652) 03/10/2023 ADJUST AFP M.O.M. (test code = 2661) 0.79 M.O.M. AFP (test code = 67468) 37.2 NG/ML Arnold HorneHEMOGLOBIN [id number] 00:00:00* Test Item Value Reference Range Interpretation Comme nts HEMOGLOBIN A1 (test code = 2575) 97.7 % HEMOGLOBIN A2 (test code = 2576) 2.3 % HEMOGLOBIN F () (test c ode = 2722) 0.0 % HEMOGLOBIN S (test code = 2724) NONE % HEMOGLOBIN C (test code = 2726) NONE % OTHER HEMOGLOBIN VARIANT (te st code = 60134) NONE DETEC % PATHOLOGIST'S INTERPRETATION (test code = 2577) (NOTE) Arnold HorneDRUG ABUSE SCREEN 10 REFLEX [id number] 00:00:00* Test Item Value Reference Range Interpretation Comme nts AMPHETAMINES (test code = 3201) NEGATIVE BARBITURATES (test code = 3202) NEGATIVE BENZODIAZEPINES (test code = 3203) NEGATIVE CANNABINOIDS (test code = 3204) NEGATIVE COCAINE METABOLITE (test cod e = 3205) NEGATIVE OPIATES (test code = 3209) NEGATIVE OXYCODONE (test code = 04124) NEGATIVE PHENCYCLIDINE (test code = 3210) NEGATIVE METHADONE (test code = 3207) NEGATIVE BUPRENORPHINE (test code = 61253) NEGATIVE SOURCE (test code = 847403) URINE Arnold HorneTSH, THIRD [id number] 00:00:00* Test Item Value Reference Range Interpretation Comme nts TSH, THIRD GENERATION (test code = 2821) 3.590 UIU/ML Arnold HorneGLUCOSE, 1 HR, GESTATIONAL SCREEN, 50 GM [id number] 00:00:00 * Test Item Value Reference Range Interpretation Comme nts GLUCOSE 1 HR POST 50 GM (mele t code = 2005) 142 MG/DL Arnold HorneHERPES SIMPLEX 1 [id number] 00:00:00* Test Item Value Reference Range Interpretation Comme nts HERPES SIMPLEX 1 AB, IgG (te st code = 98409) 0.252 INDEX Arnold HorneHERPES SIMPLEX 2 [id number] 00:00:00* Test Item Value Reference Range Interpretation Comme nts HERPES SIMPLEX 2 AB, IgG (te st code = 70733) 0.081 INDEX Arnold HorneOBSTETRIC PANEL + [id number] 00:00:00* Test Item Value Reference Range Interpretation Comme nts WBC (test code = 1001) 7.2 K/UL RBC (test code = 1002) 4.80 M/UL HEMOGLOBIN (test code = 1003) 11.0 G/DL HEMATOCRIT (test code = 1004) 35.7 % MCV (test code = 1005) 74.4 fL MCH (test code = 1006) 22.9 PG MCHC (test code = 1007) 30.8 G/DL RDW (test code = 1038) 18.2 % NEUTROPHILS (test code = 1008) 70.7 % LYMPHOCYTES (test code = 1010) 21.0 % MONOCYTES (test code = 1011) 4.4 % EOSINOPHILS (test code = 1012) 2.9 % BASOPHILS (test code = 1013) 0.3 % IMMATURE GRANULOCYTES (test code = 1036) 0.7 % NUCLEATED RBCS (test code = 1065) 0.0 /100WBC'S PLATELET COUNT (test code = 1015) 341 K/UL ABSOLUTE NEUTROPHILS (test code = 1066) 5.11 K/UL ABSOLUTE LYMPHOCYTES (test code = 1067) 1.52 K/UL ABSOLUTE MONOCYTES (test code = 1068) 0.32 K/UL ABSOLUTE EOSINOPHILS (test code = 1040) 0.21 K/UL ABSOLUTE BASOPHILS (test code = 1069) 0.02 K/UL ABS IMMATURE GRANULOCYTES (test code = 1020) 0.05 K/UL ABS NUCLEATED RBCS (test code = 31918) 0.00 K/UL BLOOD TYPE AND RH (test code = 3901) B POSITIVE ANTIBODY SCREEN (test code = 3902) NEGATIVE RUBELLA ANTIBODY SCREEN (test code = 4600) 21 IU/ML RUBELLA IgG INTERP (test code = 33692) REACTIVE HEPATITIS B SURF AG (test code = 2739) NON-REACTIVE RPR (test code = 58990) NON-REACTIVE RPR TITER (test code = 3500) NOT INDIC. TITER HIV 1/2 4TH GEN, RFLX CONF (test code = 3514) NON-REACTIVE Arnold HorneHEPATITIS C REFLEX [id number] 00:00:00* Test Item Value Reference Range Interpretation Comme nts HEPATITIS C ANTIBODY (test c ode = 4675) NON-REACTIVE Arnold HorneVARICELLA ZOSTER [id number] 00:00:00* Test Item Value Reference Range Interpretation Comme nts VARICELLA ZOSTER IgG (test c ode = 19483) 914 INDEX Arnold HorneHCG, [id number] 00:00:00* Test Item Value Reference Range Interpretation Comme nts HCG, QUANTITATIVE (test code = 2506) 552 MIU/ML Arnold HorneCOMPREHENSIVE METABOLIC [id number] 00:00:00* Test Item Value Reference Range Interpretation Comme nts GLUCOSE (test code = 2217) 120 MG/DL BUN (test code = 2208) 14 MG/DL CREATININE (test code = 2214) 0.64 MG/DL eGFR (2020 CKD-EPI) (test code = 96596) 123 ML/MIN/1.73 CALC BUN/CREAT (test code = 2235) 22 RATIO SODIUM (test code = 2231) 135 MEQ/L POTASSIUM (test code = 2228) 4.1 MEQ/L CHLORIDE (test code = 2215) 100 MEQ/L CARBON DIOXIDE (test code = 2206) 25 MEQ/L CALCIUM (test code = 2209) 9.7 MG/DL PROTEIN, TOTAL (test code = 2229) 8.0 G/DL ALBUMIN (test code = 2201) 4.4 G/DL CALC GLOBULIN (test code = 2240) 3.6 G/DL CALC A/G RATIO (test code = 2234) 1.2 RATIO BILIRUBIN, TOTAL (test code = 2207) 0.2 MG/DL ALKALINE PHOSPHATASE (test code = 2204) 66 U/L AST (test code = 2218) 15 U/L ALT (test code = 2219) 14 U/L Arnold HorneHEMOGLOBIN [id number] 00:00:00* Test Item Value Reference Range Interpretation Comme ava HEMOGLOBIN A1c (test code = 07578) 6.0 % Arnold HorneVITAMIN D, 25 [id number] 00:00:00* Test Item Value Reference Range Interpretation Comme ava VITAMIN D, 25 OH (test code = 4958) 22 NG/ML Arnold HorneHCG, [id number] 00:00:00* Test Item Value Reference Range Interpretation Comme ava HCG, QUANTITATIVE (test code = 2506) 20 MIU/ML Arnold HorneSEDIMENTATION [id number] 00:00:00* Test Item Value Reference Range Interpretation Comme nts SEDIMENTATION RATE (test cod e = 1017) 31 MM/HOUR Arnold HorneC-REACTIVE [id number] 00:00:00* Test Item Value Reference Range Interpretation Comme [facility] C-REACTIVE PROTEIN (test cod e = 3513) 0.8 MG/DL Arnold HorneCBC W/AUTO [id number] 00:00:00* Test Item Value Reference Range Interpretation Comme ava WBC (test code = 1001) 9.0 K/UL RBC (test code = 1002) 4.69 M/UL HEMOGLOBIN (test code = 1003) 10.7 G/DL HEMATOCRIT (test code = 1004) 34.6 % MCV (test code = 1005) 73.8 fL MCH (test code = 1006) 22.8 PG MCHC (test code = 1007) 30.9 G/DL RDW (test code = 1038) 17.0 % NEUTROPHILS (test code = 1008) 67.2 % LYMPHOCYTES (test code = 1010) 26.2 % MONOCYTES (test code = 1011) 4.8 % EOSINOPHILS (test code = 1012) 1.3 % BASOPHILS (test code = 1013) 0.4 % IMMATURE GRANULOCYTES (test code = 1036) 0.1 % NUCLEATED RBCS (test code = 1065) 0.0 /100WBC'S PLATELET COUNT (test code = 1015) 399 K/UL ABSOLUTE NEUTROPHILS (test c ode = 1066) 6.02 K/UL ABSOLUTE LYMPHOCYTES (test c ode = 1067) 2.35 K/UL ABSOLUTE MONOCYTES (test cod e = 1068) 0.43 K/UL ABSOLUTE EOSINOPHILS (test c ode = 1040) 0.12 K/UL ABSOLUTE BASOPHILS (test cod e = 1069) 0.04 K/UL ABS IMMATURE GRANULOCYTES (t est code = 1020) 0.01 K/UL ABS NUCLEATED RBCS (test cod e = 44728) 0.00 K/UL Arnold HorneDIRECT [id number] 09:24:44* Test Item Value Reference Range Interpretation Comme nts DIRECT MAHSA (test code = 64116) NEGATIVE NEGATIVE DIRECT MAHSA [ADDED]2022-12-02 00:00:00* Test Item Value Reference Range Interpretation Comme nts DIRECT MAHSA (test code = 49365) NEGATIVE Arnold HorneRNA POLYMERASE III IgG [id number] 21:18:13* Test Item Value Reference Range Interpretation Comme nts RNA POLYMERASE III IgG ANTIBODY (test code = 07234) 6 Units 0-19 INTERPRETIVE INFORMATION: RNA Polymerase III Antibody, IgG 19 Units or less ......Negative 20 - 39 Units .........Weak Positive 40 - 80 Units .........Moderate Positive 81 Units or greater ...Strong PositiveThe presence of RNA polymerase III IgG antibody, when considered in conjunction with other laboratory and clinical findings, is an aid in the diagnosis of systemic sclerosis (SSc) with increased incidence of skin involvement and renal crisis with the diffuse cutaneous form of SSc. RNA polymerase III IgG antibody occur in about 11-23 percent of SSc patients, and typically in the absence of anti-centromere and anti-Scl-70 antibodies.A negative result indicates no detectable IgG antibodies to the dominant antigen of RNA polymerase III and does not rule out the possibility of SSc. False-positive results may also occur due to non-specific binding of immune complexes. Strong clinical correlation is recommended.If clinical suspicion remains, consider additional testing for other antibodies associated with SSc, including centromere, Scl-70, U3-FURNISHINGS CONSERVATOR, PM/Scl, or Th/To. TESTING PERFORMED AT [facility], [address] [address] [place] [id number] CLIA NO. [id number] RNA POLYMERASE III IgG ANTIBODY [ADDED]2022-12-01 00:00:00* Test Item Value Reference Range Interpretation Comme nts RNA POLYMERASE III IgG ANTIB ADAIR (test code = 62084) 6 Units Arnold Garcia, [id number] 12:03:27SPECIMEN NUMBER: [id number] CULTURE, URINE SPECIMEN NUMBER: [id number] SPECIMEN COMMENT: URINE SOURCE: URINE REPORT STATUS: FINAL ISOLATE NUMBER 1: IDENTIFICATION: 11/30/2022 10-50,000 CFU/ML STREPTOCOCCUS AGALACTIAE (GROUP B) ADDITIONAL OBSERVATIONS: PENICILLIN AND AMPICILLIN ARE DRUGS OF CHOICE FORTREATMENT OF B-HEMOLYTIC STREPTOCOCCAL INFECTIONS. SUSCEPTIBILITY TESTING OF PENICILLIN AND OTHER B-LACTAMS APPROVED BY THE [place] FOOD AND DRUG ADMINISTRATION FOR TREATMENT OF B-HEMOLYTIC STREPTOCOCCAL INFECTIONS NEED NOT BE PERFORMED ROUTINELY. ADDITIONAL OBSERVATIONS: 11/30/2022 >100,000 CFU/ML MIXED MICROBIAL POPULATION PRESENT, NO PREDOMINATING ORGANISMS;PROBABLE CONTAMINANTS.QUANTIFERON TB GOLD [id number] 05:12:40* Test Item Value Reference Range Interpretation Comme nts QUANTIFERON TB GOLD PLUS (test code = 85422) NEGATIVE NEGATIVE Interpretive guidelines: Positive: Indicates active or latent infection by MTB complex. May also be positive with M. kansasii, M. szulgai and M. marinum. Not positive with BCG therapy. To establish a diagnosis of active disease, correlate with clinical and radiographic data. Indeterminate: May occur from excessive levels of gamma interferon, heterophil antibodies, anergy or handling issues. Repeat analysis is recommended. Negative: Presumptive negative for active or latent MTB infection. False negatives may occasionally be seen with impaired immune function or testing too early after exposure. _ GAMMA INTERFERON RESULTS TB1-NIL (test code = 61344) 0.00 IU/ML <0.35 TB2-NIL (test code = 75375) 0.00 IU/ML <0.35 MITOGEN-NIL (test code = 57139) 5.64 IU/ML NIL (test code = 33592) 0.02 IU/ML JOLYNN (ANTI-NUCLEAR AB) WITH REFLEX [id number] 04:00:27* Test Item Value Reference Range Interpretation Comme nts ANTI-NUCLEAR ANTIBODIES (test code = 3506) POSITIVE NEGATIVE A JOLYNN PATTERN (REPORTED TITER) (test code = 84176) SEE BELOW HOMOGENEOUS (test code = 38757) 1:80 TITER NEGATIVE H SPECKLED (test code = 226009) NEGATIVE TITER NEGATIVE DENSE FINE SPECKLED (test code = 79392) NEGATIVE TITER NEGATIVE CENTROMERE (test code = 216720) NEGATIVE TITER NEGATIVE COARSE SPECKLED (test code = 948732) NEGATIVE TITER NEGATIVE DISCRETE NUCLEAR DOTS (test code = 853703) NEGATIVE TITER NEGATIVE NUCLEOLAR (test code = 134116) NEGATIVE TITER NEGATIVE NUCLEAR MEMBRANE (test code = 822503) NEGATIVE TITER NEGATIVE CYTO. RETICULAR (APURVA) (test code = 900427) NEGATIVE NEGATIVE COMMENTS (test code = 485929) NONE METHOD (test code = 24422) (NOTE) NOTE: EFFECTIVE 05/20/2022, METHOD IS TRANSITIONED TO THE [employer] IFA PLATFORM. THE METHOD INCLUDES A SCREENTHRESHOLD OF 1:80, DIGITIZED AND COMPUTER ALGORITHM-ASSISTEDINTE RPRETATION OF TITERS AND DIGITAL PATTERNS, AND HEp-2 CELLLINE SUBSTRATE. ADDITIONAL UNUSUAL PATTERNS WILL BE GIVEN ASCOMMENTS. FOR MORE INFORMATION, SEE [email or web address] QUANTIFERON TB GOLD PLUS [ADDED]2022-11-30 00:00:00* Test Item Value Reference Range Interpretation Comme nts QUANTIFERON TB GOLD PLUS (te st code = 31498) NEGATIVE TB1-NIL (test code = 99662) 0.00 IU/ML TB2-NIL (test code = 40287) 0.00 IU/ML MITOGEN-NIL (test code = 94637) 5.64 IU/ML NIL (test code = 80752) 0.02 IU/ML Arnold Oliveira (ANTI-NUCLEAR AB) WITH REFLEX TITER [ADDED]2022-11-30 00:00:00* Test Item Value Reference Range Interpretation Comme nts ANTI-NUCLEAR ANTIBODIES (mele t code = 3506) POSITIVE JOLYNN PATTERN (REPORTED TITER) (test code = 14374) SEE BELOW HOMOGENEOUS (test code = 88279) 1:80 TITER SPECKLED (test code = [id number]) NEGATIVE TITER DENSE FINE SPECKLED (test co de = 65635) NEGATIVE TITER CENTROMERE (test code = 186272) NEGATIVE TITER COARSE SPECKLED (test code = 758168) NEGATIVE TITER DISCRETE NUCLEAR DOTS (test code = 040896) NEGATIVE TITER NUCLEOLAR (test code = 917406) NEGATIVE TITER NUCLEAR MEMBRANE (test code = 285416) NEGATIVE TITER CYTO. RETICULAR (APURVA) (test code = 276287) NEGATIVE COMMENTS (test code = 618411) NONE METHOD (test code = 69805) (NOTE) Arnold HorneCULTURE, URINE [ADDED]2022-11-30 00:00:00* Test Item Value Reference Range Interpretation Comme nts CULTURE, URINE (test code = 61557) SPECIMEN NUMBER: [id number] Arnold HorneALBUMIN/CREATININE RATIO, URINE, [id number] 08:34:04* Test Item Value Reference Range Interpretation Comme nts CREATININE, URINE, CONC. (test code = 2072) 143.9 MG/DL NOT ESTAB ALBUMIN, URINE, RANDOM (test code = 29564) 1.2 MG/DL NOT ESTAB CALC ALBUMIN/CREAT, RND (test code = 08475) 8 MG/G <30 Note: Albumin/Creatinine ratio reference interval reflects ADA and NKF guidelines. COMPLEMENT C3 AND [id number] 06:22:20* Test Item Value Reference Range Interpretation Comme nts COMPLEMENT C3 (test code = 3509) 133 MG/DL 90-180 COMPLEMENT C4 (test code = 3510) 21 MG/DL 10-40 [facility] has impo rtant pathology staff changes effective 12/11/2022. New pathology staff will provide uninterrupted, excellent patient care and clinical consultation. See URL: [email or web address]. UNLESS OTHERWISE INDICATED, ALL TESTING PERFORMED AT [facility] [address] [place] [address] [place] CLIA: [id number], CAP: [id number] C-REACTIVE [id number] 06:22:20* Test Item Value Reference Range Interpretation Comme nts C-REACTIVE PROTEIN (test cod e = 3513) 1.5 MG/DL <0.5 H COMPREHENSIVE METABOLIC [id number] 05:54:29* Test Item Value Reference Range Interpretation Comme nts GLUCOSE (test code = 2217) 76 MG/DL 70-99 BUN (test code = 2207) 18 MG/DL 6-20 CREATININE (test code = 2214) 0.66 MG/DL 0.60-1.30 eGFR (2020 CKD-EPI) (test code = 75748) 122 ML/MIN/1.73 >60 CALC BUN/CREAT (test code = 2235) 27 RATIO 6-28 SODIUM (test code = 2231) 140 MEQ/L 133-146 POTASSIUM (test code = 2228) 4.2 MEQ/L 3.5-5.4 CHLORIDE (test code = 2215) 104 MEQ/L 95-107 CARBON DIOXIDE (test code = 2206) 22 MEQ/L 19-31 CALCIUM (test code = 2209) 9.7 MG/DL 8.5-10.5 PROTEIN, TOTAL (test code = 2229) 8.0 G/DL 6.1-8.3 ALBUMIN (test code = 2201) 4.3 G/DL 3.5-5.2 CALC GLOBULIN (test code = 2240) 3.7 G/DL 1.9-3.7 CALC A/G RATIO (test code = 2234) 1.2 RATIO 1.0-2.6 BILIRUBIN, TOTAL (test code = 2207) 0.3 MG/DL See_Comment [Automated me ssage] The system which generated this result transmitted reference range: <=1.2. The reference range was not used to interpret this result as normal/abnormal. ALKALINE PHOSPHATASE (test code = 2204) 77 U/L 40-112 AST (test code = 2218) 16 U/L 9-40 ALT (test code = 2219) 11 U/L 5-40 SCL-70 [id number] 05:49:07* Test Item Value Reference Range Interpretation Comme nts SCL-70 ANTIBODY (test code = 4606) <0.2 AI <1.0 VALLE AND FURNISHINGS CONSERVATOR [id number] 05:49:07* Test Item Value Reference Range Interpretation Comme nts VALLE (Sm) ANTIBODY (test co de = 23380) <0.2 AI <1.0 FURNISHINGS CONSERVATOR ANTIBODY (test code = 77290) <0.2 AI <1.0 SJOGREN'S SS-A AND SS-B [id number] 05:49:07* Test Item Value Reference Range Interpretation Comme nts SJOGREN'S SS-A ANTIBODY (mele t code = 46655) <0.2 AI <1.0 SJOGREN'S SS-B ANTIBODY (mele t code = 34043) <0.2 AI <1.0 CHROMATIN [id number] 05:49:07* Test Item Value Reference Range Interpretation Comme nts CHROMATIN ANTIBODY (test cod e = 21941) <0.2 AI <1.0 DNA DS ANTIBODY REFLEX [id number] 05:49:07* Test Item Value Reference Range Interpretation Comme nts dsDNA ANTIBODY (test code = 88598) <1.0 SEE BELOW NEGATIVE . . . . . . . . . . . . . . IU/ML <=4.9 INDETERMINATE. . . . . . . . . . . . IU/ML 5.0-9.0 POSITIVE . . . . . . . . . . . . . . IU/ML >=10.0 dsDNA ANTIBODY REFLEX (test code = 64878) (NOTE) NEGATIVE NOTE: REFLEX CRITERIA NOT MET FOR DNA DOUBLE STRANDED ANTIBODY BY EPI METHOD. SEDIMENTATION [id number] 04:46:10* Test Item Value Reference Range Interpretation Comme nts SEDIMENTATION RATE (test cod e = 1017) 19 MM/HOUR 0-20 CBC W/AUTO DIFF WITH [id number] 04:08:39* Test Item Value Reference Range Interpretation Comme nts WBC (test code = 1001) 8.9 K/UL 3.5-11.0 RBC (test code = 1002) 4.83 M/UL 3.80-5.40 HEMOGLOBIN (test code = 1003) 11.2 G/DL 11.5-15.5 L HEMATOCRIT (test code = 1004) 36.1 % 34.0-45.0 MCV (test code = 1005) 74.7 fL 80.0-99.0 L MCH (test code = 1006) 23.2 PG 25.0-33.0 L MCHC (test code = 1007) 31.0 G/DL 31.0-36.0 RDW (test code = 1038) 16.0 % 11.5-15.0 H NEUTROPHILS (test code = 1008) 67.7 % LYMPHOCYTES (test code = 1010) 21.6 % MONOCYTES (test code = 1011) 6.3 % EOSINOPHILS (test code = 1012) 3.5 % BASOPHILS (test code = 1013) 0.6 % IMMATURE GRANULOCYTES (test code = 1036) 0.3 % NUCLEATED RBCS (test code = 1065) 0.0 /100 WBC'S See_Comment [Automated messa ge] The system which generated this result transmitted reference range: 0.0. The reference range was not used to interpret this result as normal/abnormal. PLATELET COUNT (test code = 1015) 381 K/UL 130-400 ABSOLUTE NEUTROPHILS (test code = 1066) 6.06 K/UL 1.50-7.50 ABSOLUTE LYMPHOCYTES (test code = 1067) 1.93 K/UL 1.00-4.00 ABSOLUTE MONOCYTES (test code = 1068) 0.56 K/UL 0.20-1.00 ABSOLUTE EOSINOPHILS (test code = 1040) 0.31 K/UL 0.00-0.50 ABSOLUTE BASOPHILS (test code = 1069) 0.05 K/UL 0.00-0.20 ABS IMMATURE GRANULOCYTES (test code = 1020) 0.03 K/UL 0.00-0.10 ABS NUCLEATED RBCS (test code = 62987) 0.00 K/UL 0.00-0.11 VALLE AND FURNISHINGS CONSERVATOR ANTIBODIES [ADDED]2022-11-29 00:00:00* Test Item Value Reference Range Interpretation Comme nts VALLE (Sm) ANTIBODY (test co de = 06244) <0.2 AI FURNISHINGS CONSERVATOR ANTIBODY (test code = 19759) <0.2 AI Arnold F AustinSJOGREN'S SS-A AND SS-B ANTIBODIES [ADDED]2022-11-29 00:00:00* Test Item Value Reference Range Interpretation Comme nts SJOGREN'S SS-A ANTIBODY (mele t code = 31155) <0.2 AI SJOGREN'S SS-B ANTIBODY (mele t code = 86846) <0.2 AI Arnold Root AustinCOMPREHENSIVE METABOLIC PANEL [ADDED]2022-11-29 00:00:00* Test Item Value Reference Range Interpretation Comme nts GLUCOSE (test code = 2217) 76 MG/DL BUN (test code = 2208) 18 MG/DL CREATININE (test code = 2214) 0.66 MG/DL eGFR (2020 CKD-EPI) (test code = 91452) 122 ML/MIN/1.73 CALC BUN/CREAT (test code = 2235) 27 RATIO SODIUM (test code = 2231) 140 MEQ/L POTASSIUM (test code = 2228) 4.2 MEQ/L CHLORIDE (test code = 2215) 104 MEQ/L CARBON DIOXIDE (test code = 2206) 22 MEQ/L CALCIUM (test code = 2209) 9.7 MG/DL PROTEIN, TOTAL (test code = 2229) 8.0 G/DL ALBUMIN (test code = 2201) 4.3 G/DL CALC GLOBULIN (test code = 2240) 3.7 G/DL CALC A/G RATIO (test code = 2234) 1.2 RATIO BILIRUBIN, TOTAL (test code = 2207) 0.3 MG/DL ALKALINE PHOSPHATASE (test code = 2204) 77 U/L AST (test code = 2218) 16 U/L ALT (test code = 2219) 11 U/L Arnold Root AustinCHROMATIN ANTIBODY [ADDED]2022-11-29 00:00:00* Test Item Value Reference Range Interpretation Comme nts CHROMATIN ANTIBODY (test cod e = 69302) <0.2 AI Arnold Root AustinSEDIMENTATION RATE [ADDED]2022-11-29 00:00:00* Test Item Value Reference Range Interpretation Comme nts SEDIMENTATION RATE (test cod e = 1017) 19 MM/HOUR Arnold HorneDNA DS ANTIBODY REFLEX EPI [ADDED]2022-11-29 00:00:00* Test Item Value Reference Range Interpretation Comme nts dsDNA ANTIBODY (test code = 86406) <1.0 dsDNA ANTIBODY REFLEX (test code = 21969) (NOTE) Arnold Root OzzieC-REACTIVE PROTEIN [ADDED]2022-11-29 00:00:00* Test Item Value Reference Range Interpretation Comme nts C-REACTIVE PROTEIN (test cod e = 3513) 1.5 MG/DL Arnold Root OzzieCBC W/AUTO DIFF WITH PLATELETS [ADDED]2022-11-29 00:00:00* Test Item Value Reference Range Interpretation Comme nts WBC (test code = 1001) 8.9 K/UL RBC (test code = 1002) 4.83 M/UL HEMOGLOBIN (test code = 1003) 11.2 G/DL HEMATOCRIT (test code = 1004) 36.1 % MCV (test code = 1005) 74.7 fL MCH (test code = 1006) 23.2 PG MCHC (test code = 1007) 31.0 G/DL RDW (test code = 1038) 16.0 % NEUTROPHILS (test code = 1008) 67.7 % LYMPHOCYTES (test code = 1010) 21.6 % MONOCYTES (test code = 1011) 6.3 % EOSINOPHILS (test code = 1012) 3.5 % BASOPHILS (test code = 1013) 0.6 % IMMATURE GRANULOCYTES (test code = 1036) 0.3 % NUCLEATED RBCS (test code = 1065) 0.0 /100WBC'S PLATELET COUNT (test code = 1015) 381 K/UL ABSOLUTE NEUTROPHILS (test c ode = 1066) 6.06 K/UL ABSOLUTE LYMPHOCYTES (test c ode = 1067) 1.93 K/UL ABSOLUTE MONOCYTES (test cod e = 1068) 0.56 K/UL ABSOLUTE EOSINOPHILS (test c ode = 1040) 0.31 K/UL ABSOLUTE BASOPHILS (test cod e = 1069) 0.05 K/UL ABS IMMATURE GRANULOCYTES (t est code = 1020) 0.03 K/UL ABS NUCLEATED RBCS (test cod e = 65218) 0.00 K/UL Arnold Root OzzieCOMPLEMENT C3 AND C4 [ADDED]2022-11-29 00:00:00* Test Item Value Reference Range Interpretation Comme nts COMPLEMENT C3 (test code = 3509) 133 MG/DL COMPLEMENT C4 (test code = 3510) 21 MG/DL Arnold Root OzzieALBUMIN/CREATININE RATIO, URINE, RANDOM [ADDED]2022-11-29 00:00:00* Test Item Value Reference Range Interpretation Comme nts CREATININE, URINE, CONC. (te st code = 2072) 143.9 MG/DL ALBUMIN, URINE, RANDOM (test code = 78116) 1.2 MG/DL CALC ALBUMIN/CREAT, RND (mele t code = 53260) 8 MG/G Arnold HorneSCL-70 ANTIBODY [ADDED]2022-11-29 00:00:00* Test Item Value Reference Range Interpretation Comme nts SCL-70 ANTIBODY (test code = 4606) <0.2 AI Arnold Oliveira (ANTI-NUCLEAR AB) WITH REFLEX [id number] 00:00:00* Test Item Value Reference Range Interpretation Comme nts ANTI-NUCLEAR ANTIBODIES (mele t code = 3506) POSITIVE JOLYNN PATTERN (REPORTED TITER) (test code = 44770) SEE BELOW HOMOGENEOUS (test code = 40697) 1:160 TITER SPECKLED (test code = 225490) NEGATIVE TITER DENSE FINE SPECKLED (test co de = 56683) NEGATIVE TITER CENTROMERE (test code = 659415) NEGATIVE TITER COARSE SPECKLED (test code = 723654) NEGATIVE TITER DISCRETE NUCLEAR DOTS (test code = 621732) NEGATIVE TITER NUCLEOLAR (test code = 978128) NEGATIVE TITER NUCLEAR MEMBRANE (test code = 644757) NEGATIVE TITER CYTO. RETICULAR (APURVA) (test code = 530425) NEGATIVE COMMENTS (test code = 901218) NONE METHOD (test code = 12694) (NOTE) Arnold HorneTSH + FREE T4 [id number] 00:00:00* Test Item Value Reference Range Interpretation Comme nts TSH, THIRD GENERATION (test code = 2821) 7.230 UIU/ML FREE T4 (THYROXINE) (test co de = 2823) 1.01 NG/DL Arnold HorneVITAMIN B 12 AND FOLIC [id number] 00:00:00* Test Item Value Reference Range Interpretation Comme nts VITAMIN B-12 (test code = 2840) 856 PG/ML FOLIC ACID (test code = 2695) 5.0 UG/L Arnold HorneRHEUMATOID FACTOR, [id number] 00:00:00* Test Item Value Reference Range Interpretation Comme ava RHEUMATOID FACTOR, QUANT (te st code = 3502) 23 IU/ML Arnold HorneSEDIMENTATION [id number] 00:00:00* Test Item Value Reference Range Interpretation Comme nts SEDIMENTATION RATE (test cod e = 1017) 16 MM/HOUR Arnold HorneURIC [id number] 00:00:00* Test Item Value Reference Range Interpretation Comme nts URIC ACID (test code = 2233) 4.0 MG/DL Arnold HorneC-REACTIVE [id number] 00:00:00* Test Item Value Reference Range Interpretation Comme nts C-REACTIVE PROTEIN (test cod e = 3513) 0.7 MG/DL Arnold HorneVITAMIN D, 25 [id number] 00:00:00* Test Item Value Reference Range Interpretation Comme nts VITAMIN D, 25 OH (test code = 4958) 12 NG/ML Arnold HorneCBC W/AUTO [id number] 00:00:00* Test Item Value Reference Range Interpretation Comme nts WBC (test code = 1001) 7.0 K/UL RBC (test code = 1002) 4.65 M/UL HEMOGLOBIN (test code = 1003) 10.8 G/DL HEMATOCRIT (test code = 1004) 35.3 % MCV (test code = 1005) 75.9 fL MCH (test code = 1006) 23.2 PG MCHC (test code = 1007) 30.6 G/DL RDW (test code = 1038) 18.0 % NEUTROPHILS (test code = 1008) 65.6 % LYMPHOCYTES (test code = 1010) 25.8 % MONOCYTES (test code = 1011) 5.6 % EOSINOPHILS (test code = 1012) 2.3 % BASOPHILS (test code = 1013) 0.6 % IMMATURE GRANULOCYTES (test code = 1036) 0.1 % NUCLEATED RBCS (test code = 1065) 0.0 /100WBC'S PLATELET COUNT (test code = 1015) 351 K/UL ABSOLUTE NEUTROPHILS (test c ode = 1066) 4.57 K/UL ABSOLUTE LYMPHOCYTES (test c ode = 1067) 1.80 K/UL ABSOLUTE MONOCYTES (test cod e = 1068) 0.39 K/UL ABSOLUTE EOSINOPHILS (test c ode = 1040) 0.16 K/UL ABSOLUTE BASOPHILS (test cod e = 1069) 0.04 K/UL ABS IMMATURE GRANULOCYTES (t est code = 1020) 0.01 K/UL ABS NUCLEATED RBCS (test cod e = 76575) 0.00 K/UL Arnold HorneHEMOGLOBIN [id number] 00:00:00* Test Item Value Reference Range Interpretation Comme nts HEMOGLOBIN A1c (test code = 91653) 5.7 % Arnold Root OzzieLIPID [id number] 00:00:00* Test Item Value Reference Range Interpretation Comme nts CHOLESTEROL (test code = 2210) 114 MG/DL TRIGLYCERIDES (test code = 2232) 53 MG/DL HDL CHOLESTEROL (test code = 2220) 48 MG/DL CALC LDL CHOL (test code = 2237) 53 MG/DL RISK RATIO LDL/HDL (test cod e = 2238) 1.10 RATIO Arnold HorneCOMPREHENSIVE METABOLIC [id number] 00:00:00* Test Item Value Reference Range Interpretation Comme nts GLUCOSE (test code = 2217) 78 MG/DL BUN (test code = 2208) 16 MG/DL CREATININE (test code = 2214) 0.67 MG/DL eGFR (2020 CKD-EPI) (test code = 62108) 122 ML/MIN/1.73 CALC BUN/CREAT (test code = 2235) 24 RATIO SODIUM (test code = 2231) 138 MEQ/L POTASSIUM (test code = 2228) 4.6 MEQ/L CHLORIDE (test code = 2215) 104 MEQ/L CARBON DIOXIDE (test code = 2206) 24 MEQ/L CALCIUM (test code = 2209) 9.3 MG/DL PROTEIN, TOTAL (test code = 2229) 7.5 G/DL ALBUMIN (test code = 2201) 4.2 G/DL CALC GLOBULIN (test code = 2240) 3.3 G/DL CALC A/G RATIO (test code = 2234) 1.3 RATIO BILIRUBIN, TOTAL (test code = 2207) 0.4 MG/DL ALKALINE PHOSPHATASE (test code = 2204) 75 U/L AST (test code = 2218) 19 U/L ALT (test code = 2219) 15 U/L Arnold Horne Notes Date/Time Note Provider Source Arnold Horne [facility]
--- NOTE | 2024-06-21 20:07 | RAD REPORT ---
EXAM DESCRIPTION: CT - Head Brain Wo Cont - 06/21/2024 7:47 pm CLINICAL HISTORY: Syncope COMPARISON: none TECHNIQUE: Computed axial tomography of the head was obtained. IV contrast was not requested. All CT scans are performed using dose optimization technique as appropriate and may include automated exposure control or mA/KV adjustment according to patient size. FINDINGS: An intracranial bleed is not seen The ventricles are normal in caliber No significant hypodense areas within the brain visualized No extra-axial fluid collection is noted. Fluid within the sinuses/ mastoids is not seen IMPRESSION: No acute intracranial abnormality is seen If patient's symptoms persist MRI of the brain would be recommended
[2024-06-21 21:34] LABS: Absolute Eosinophils 0.2 K/uL (0-0.5); Absolute Lymphocytes (CBC) 1.9 K/uL (0.7-4.9); Absolute Monocytes 0.4 K/uL (0.1-1.3); Absolute Neutrophil 5.3 K/uL (1.8-8.0); Basophils % 0.6 % (0-1.3); Eosinophils % 2.4 % (0-4.4); Hematocrit 43.6 % (36.0-45.0); Hemoglobin 14.3 g/dL (12.0-15.0); Lymphocytes % 24.4 % (15.3-44.8); MCH 28.8 pg (27.0-35.0); MCHC 32.8 g/dL (32.0-36.0); MCV 87.7 fL (80-100); MPV 8.6 fL (7.6-11.3); Monocytes % 4.9 % (3.3-12.3); Neutrophils % 67.7 % (41.7-73.7); Platelets 266 thou/uL (152-406); RBC Red Blood Cell Count 4.98 M/uL (3.86-4.86); Red Cell Distribution Width 15.9 % (12.1-15.2); Specific Gravity 1.024 (1.005-1.030); Urine Bacteria None Seen /HPF (<20); Urine Bilirubin NEGATIVE (Negative); Urine Blood 1+ (Negative); Urine Clarity Turbid (Clear); Urine Color Yellow (Yellow); Urine Crystals Unidentified Few /HPF (None Seen); Urine Culture Reflex Order NOT NEEDED; Urine Glucose NEGATIVE (Negative); Urine Ketones NEGATIVE (Negative); Urine Microscopic Reflex YN ORDER UMIC; Urine Mucus 3+ /HPF (None Seen); Urine Nitrite NEGATIVE (Negative); Urine Protein TRACE (Negative); Urine RBC <5 /HPF (None Seen); Urine Urobilinogen Normal (Normal); Urine WBC <5 /HPF (<5)
[2024-06-21 21:35] LABS: Specific Gravity 1.024 (1.005-1.030)
[2024-06-21 21:39] LABS: PT Prothrombin Time 11.6 SECONDS (9.4-12.5); PTT, Activated Partial Thromb 28.4 SECONDS (24.3-36.9); Protime INR 1.04
[2024-06-21 21:40] LABS: Barbiturates NEGATIVE (NEGATIVE); Benzodiazepines NEGATIVE (NEGATIVE); Cocaine NEGATIVE (NEGATIVE); METHAMPHETAM POSITIVE (NEGATIVE); Methadone NEGATIVE (NEGATIVE); Opiates NEGATIVE (NEGATIVE); Phencyclidine NEGATIVE (NEGATIVE); THC Cannibis NEGATIVE (NEGATIVE)
[2024-06-21 21:49] LABS: ALT/SGPT 27 U/L (13-56); Albumin 4.1 g/dL (3.4-5.0); Albumin/Globulin Ratio 0.9 (1.1-1.8); Alkaline Phosphatase 65 U/L (45-117); Anion Gap 13.5 mEq/L (5.0-15.0); BUN Blood Urea Nitrogen 12 mg/dL (7-18); Bicarbonate 23 mEq/L (21-32); Bilirubin Direct 0.2 mg/dL (0-0.2); Bilirubin Indirect, Calculated 0.7 mg/dL (0.2-0.8); Bilirubin Total 0.9 mg/dL (0.2-1.0); Globulin 4.7 g/dL (2.3-3.5); Glomerular Filtration Rate 84 ml/min (=/>90); Glucose Level 87 mg/dL (74-106); Magnesium 2.2 mg/dL (1.6-2.4); Potassium 3.5 mEq/L (3.5-5.1); Protein, Total 8.8 g/dL (6.4-8.2); Sodium Level 138 mEq/L (136-145)
[2024-06-21 22:00] LABS: AST/SGOT < 10 U/L (15-37); Troponin High Sensitivity < 3.0 pg/mL (<58.9)
--- NOTE | 2024-06-21 22:44 | ER ---
Nurse's Notes [facility] Name: Lizbeth Lucio Age: 29 yrs Sex: Female : 1995 Arrival Date: 06/21/2024 Time: 17:56 Bed 13 Private MD: Diagnosis: Syncope Near Presentation: 06/21 18:14 Chief complaint: Patient states: Seen at [facility] today due to patient passing out cm10 in vehicle. Pt's states that patient has been more weak. Pt's reports that she brought patient to this ER due to wanting more tests done. Pt complaining of generalized weakness. Coronavirus screen: Client denies travel out of the [place] in the last 14 days. Ebola Screen: Patient denies travel to an Ebola-affected area in the 21 days before illness onset. No symptoms or risks identified at this time. Initial Sepsis Screen: Does the patient meet any 2 criteria? No. Patient's initial sepsis screen is negative. Does the patient have a suspected source of infection? No. Patient's initial sepsis screen is negative. Risk Assessment: Do you want to hurt yourself or someone else? Patient reports no desire to harm self or others. Onset of symptoms was June 21, 2024. 18:14 Method Of Arrival: Ambulatory cm10 18:14 Acuity: WANG 3 cm10 Triage Assessment: 18:17 General: Appears in no apparent distress. comfortable, Behavior is calm, cooperative. cm10 Neuro: No deficits noted. Level of Consciousness is awake, alert, obeys commands, Oriented to person, place, time, situation, Appropriate for age. Respiratory: No deficits noted. Airway is patent Respiratory effort is even, unlabored, Respiratory pattern is regular, symmetrical. 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 - Infectious Disease History:: Denies. - Social history:: Smoking status: Patient denies any tobacco usage or history of. Screenin:24 [facility] ED Fall Risk Assessment (Adult) History of falling in the last 3 months, al5 including since admission No falls in past 3 months (0 pts) Confusion or Disorientation No (0 pts) Intoxicated or Sedated No (0 pts) Impaired Gait No (0 pts) Mobility Assist Device Used No (0 pt) Altered Elimination No (0 pt) Score/Fall Risk Level 0 - 2 = Low Risk Oriented to surroundings, Maintained a safe environment, Hourly rounding (assess needs \T\ fall precautionary measures) done. Abuse screen: Denies threats or abuse. Denies injuries from another. Nutritional screening: No deficits noted. Tuberculosis screening: No symptoms or risk factors identified. Assessment: 21:26 General: Appears in no apparent distress. Behavior is calm, cooperative. General: al5 Appears tired. Pain: Denies pain. Neuro: Level of Consciousness is awake, alert, obeys commands, lethargic, Oriented to person, place, time, situation. Cardiovascular: Capillary refill < 3 seconds Patient's skin is warm and dry. Respiratory: Airway is patent Respiratory effort is even, unlabored, Respiratory pattern is regular, symmetrical. GI: No signs and/or symptoms were reported involving the gastrointestinal system. : No signs and/or symptoms were reported regarding the genitourinary system. EENT: No signs and/or symptoms were reported regarding the EENT system. Derm: Skin is intact, Skin is pink, warm \T\ dry. normal. Musculoskeletal: No signs and/or symptoms reported regarding the musculoskeletal system. Vital Signs: 18:14 BP 130 / 92; Pulse 83; Resp 18; Temp 96.9(IR); Pulse Ox 100% on R/A; Weight 83.46 kg; cm10 Height 5 ft. 5 in. ; Pain 0/10; 21:30 BP 133 / 91; Pulse 59; Resp 16; Pulse Ox 100% on R/A; al5 21:45 BP 143 / 86; Pulse 54; Resp 16; Pulse Ox 99% on R/A; al5 22:00 BP 137 / 85; Pulse 57; Resp 16; Pulse Ox 99% on R/A; al5 22:15 BP 132 / 90; Pulse 59; Resp 17; Pulse Ox 99% on R/A; al5 22:30 BP 142 / 98; Pulse 63; Resp 18; Pulse Ox 100% on R/A; al5 22:47 BP 136 / 98; Pulse 62; Resp 18; Pulse Ox 100% on R/A; al5 18:14 Body Mass Index 30.62 (83.46 kg, 165.1 cm) cm10 18:14 Pain Scale: Adult cm10 ED Course: 18:00 Patient arrived in ED. jj6 18:03 Shadi Calderón PA is PHCP. cp 18:03 Damien Mai MD is Attending Physician. cp 18:04 PHCP role handed off by Shadi Calderón PA sb4 18:04 Ksenia Raya PA-C is PHCP. sb4 18:17 Triage completed. cm10 18:18 Arm band placed on Patient placed in waiting room. cm10 19:47 CT Head Brain wo Cont In Process Unspecified. EDMS 20:39 Pinky Ramos, HERBERT is Primary Nurse. al5 21:17 EKG done, by ED staff. vk 21:24 Basic Metabolic Panel Sent. al5 21:24 CBC with Diff Sent. al5 21:24 Hepatic Function Sent. al5 21:24 Magnesium Sent. al5 21:24 Test, Urine Sent. al5 21:24 Protime (+inr) Sent. al5 21:24 Ptt, Activated Sent. al5 21:24 Troponin High Sensitivity Sent. al5 21:24 UDS Sent. al5 21:24 Urinalysis w/ reflexes Sent. al5 21:25 Patient has correct armband on for positive identification. Bed in low position. Call al5 light in reach. Side rails up X 1. Provided Education on: processes and procedures. 21:25 No provider procedures requiring assistance completed. Inserted saline lock: 22 gauge al5 in right antecubital area, using aseptic technique. 22:43 Sunny Dawson MD is Referral Physician. sb4 23:03 IV discontinued, intact, bleeding controlled, No redness/swelling at site. Pressure al5 dressing applied. Administered Medications: No medications were administered Medication: 21:25 VIS not applicable for this client. al5 Outcome: 22:43 Discharge ordered by . sb4 23:03 Discharged to home ambulatory, with significant other, al5 23:03 Condition: good 23:03 Discharge instructions given to patient, Instructed on discharge instructions, follow up and referral plans. Demonstrated understanding of instructions, follow-up care, 23:03 Patient left the ED. al5 Signatures: Dispatcher [employer] EDMS Shadi Calderón PA PA cp Kaitlynn, Samanta jj6 Ksenia Raya PA-C PAAlicia sb4 Arleth Prince, RN RN cm10 Huyen Rojas Amanda, RN RN al5 Corrections: (The following items were deleted from the chart) 18:17 18:14 Chief complaint: Patient states: Seen at [facility] today due to patient cm10 passing out in vehicle. Pt's states that patient has been more weak. Pt's reports that she brought patient to this ER due to wanting more tests done. cm10
--- NOTE | 2024-06-21 22:44 | EDPHYS ---
Physician Documentation [facility] Name: Lizbeth Lucio Age: 29 yrs Sex: Female : 1995 Arrival Date: 06/21/2024 Time: 17:56 Bed 13 Private MD: ED Physician Damien Mai HPI: 06/21 18:26 This 29 yrs old Female presents to ER via Ambulatory with complaints of sb4 Weakness. 18:26 Patient states that this morning she started feeling strangely-weak, moving slowly, sb4 brain fog. She called her who came home and called an ambulance. states that she was going in and out of consciousness and shaking but states that he did not think it was seizure-like activity. States that she is kind of been in a "daze" since this happened. She was evaluated at [facility] (formerly [facility]), had basic blood work done and was discharged. does not think she is normal and brought her here for second opinion. 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 - Infectious Disease History:: Denies. - Social history:: Smoking status: Patient denies any tobacco usage or history of. ROS: 18:26 Constitutional: Negative for fever, chills, and weight loss, sb4 18:26 Neuro: Positive for dizziness, loss of consciousness, syncope, tingling, weakness, 18:26 All other systems are negative, Exam: 18:26 Head/Face: Normocephalic, atraumatic. Eyes: Extra-ocular motions intact. Periorbital sb4 areas with no swelling, redness, or edema. ENT: Mucous membranes moist. Cardiovascular: Regular rate and rhythm with a normal S1 and S2. Respiratory: Lungs have equal breath sounds bilaterally, clear to auscultation and percussion. No rales, rhonchi or wheezes noted. No increased work of breathing, no retractions or nasal flaring. Abdomen/GI: Soft, non-tender, no distension. Skin: Warm, dry with normal turgor. Normal color with no rashes, no lesions, and no evidence of cellulitis. MS/ Extremity: Pulses equal, no cyanosis. Neurovascular intact. Full, normal range of motion. 18:26 Constitutional: The patient appears in no acute distress, alert, awake, 18:26 Neuro: Orientation: to person, place, time \\T\\ situation. Mentation: is normal, lucid, able to follow commands, sleepy, Memory: is normal, Motor: moves all fours, Sensation: is normal, Gait: is steady, seizure activity, is not displayed by the patient, 18:26 Psych: Affect is flat, Vital Signs: 18:14 BP 130 / 92; Pulse 83; Resp 18; Temp 96.9(IR); Pulse Ox 100% on R/A; Weight 83.46 kg; cm10 Height 5 ft. 5 in. ; Pain 0/10; 21:30 BP 133 / 91; Pulse 59; Resp 16; Pulse Ox 100% on R/A; al5 21:45 BP 143 / 86; Pulse 54; Resp 16; Pulse Ox 99% on R/A; al5 22:00 BP 137 / 85; Pulse 57; Resp 16; Pulse Ox 99% on R/A; al5 22:15 BP 132 / 90; Pulse 59; Resp 17; Pulse Ox 99% on R/A; al5 22:30 BP 142 / 98; Pulse 63; Resp 18; Pulse Ox 100% on R/A; al5 22:47 BP 136 / 98; Pulse 62; Resp 18; Pulse Ox 100% on R/A; al5 18:14 Body Mass Index 30.62 (83.46 kg, 165.1 cm) cm10 18:14 Pain Scale: Adult cm10 MDM: 18:05 Patient medically screened. sb4 22:42 Data reviewed: vital signs, nurses notes, lab test result(s), EKG, radiologic studies, sb4 and as a result, I will discharge patient. Counseling: I had a detailed discussion with the patient and/or guardian regarding the historical points, exam findings, and any diagnostic results supporting the discharge/admit diagnosis, lab results, radiology results, the need for outpatient follow up, a neurologist, to return to the emergency department if symptoms worsen or persist or if there are any questions or concerns that arise at home. 06/21 18:25 Order name: Basic Metabolic Panel; Complete Time: 22:04 sb4 06/21 18:25 Order name: CBC with Diff; Complete Time: 21:38 sb4 06/21 18:25 Order name: Hepatic Function; Complete Time: 22:04 sb4 06/21 18:25 Order name: Magnesium; Complete Time: 22:04 sb4 06/21 18:25 Order name: Test, Urine; Complete Time: 21:38 sb4 06/21 18:25 Order name: Protime (+inr); Complete Time: 21:43 sb4 06/21 18:25 Order name: Ptt, Activated; Complete Time: 21:43 sb4 06/21 18:25 Order name: Troponin High Sensitivity; Complete Time: 22:04 sb4 06/21 18:25 Order name: UDS; Complete Time: :43 sb4 06/21 18:25 Order name: Urinalysis w/ reflexes; Complete Time: 21:38 sb4 06/21 18:25 Order name: CT Head Brain wo Cont; Complete Time: 20:08 sb4 06/21 18:25 Order name: EKG; Complete Time: 18:26 sb4 06/21 18:25 Order name: Cardiac monitoring; Complete Time: 21:24 sb4 06/21 18:25 Order name: EKG - Nurse/Tech; Complete Time: 21:08 sb4 06/21 18:25 Order name: IV Saline Lock; Complete Time: 21:24 sb4 06/21 18:25 Order name: Labs collected and sent; Complete Time: 21:24 sb4 06/21 18:25 Order name: O2 Per Protocol; Complete Time: 21:23 sb4 06/21 18:25 Order name: O2 Sat Monitoring; Complete Time: 21:23 sb4 EC:31 Rate is 68 beats/min. Rhythm is regular, Normal Sinus Rhythm. UT interval is normal at sb4 200 msec. QRS interval is normal at 98 msec. QT interval is normal at 424 msec. No Q waves. T waves are Normal. No ST changes noted. Clinical impression: Normal ECG and No evidence of ischemia. Interpreted by me. Reviewed by me. Administered Medications: No medications were administered Disposition Summary: 06/21/24 22:43 Discharge Ordered Notes: Location: Home sb4 Problem: new sb4 Symptoms: have improved sb4 Condition: Stable sb4 Diagnosis - Syncope Near sb4 Followup: sb4 - With: Sunny Dawson MD - When: As needed - Reason: Further diagnostic work-up, Recheck today's complaints, Re-evaluation by your physician Discharge Instructions: - Discharge Summary Sheet sb4 - Near-Syncope sb4 - Non-Epileptic Seizures, Adult sb4 Forms: - Patient Portal Instructions sb4 - Leadership Thank You Letter sb4 Signatures: Dispatcher [employer] Ksenia Moseley PA-C PA-C sb4 Arleth Prince RN RN cm10
[2024-06-22 00:52] VITALS: TEMP 96.9
[2024-06-22 00:58] VITALS: O2SAT 100
[2024-06-22 00:59] VITALS: BP 136/98
--- NOTE | 2024-06-22 16:54 | EKG ---
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
== END 2024-06-21 23:03 | disposition home or self-care (01) ==
LOC: ER 17:56
DX: R55 Syncope and collapse (principal); R53.1 Weakness; R20.2 Paresthesia of skin
CPT/HCPCS: 36415; 70450; 80048; 80076; 80307; 81001; 81025; 83735; 84484; 85025; 85610; 85730; 93005; 99284